=== PATIENT | male | born 1975 | race Caucasian/White ===

== ENCOUNTER 2016-03-02 06:16 | Inpatient (IN) ==
[2016-03-02] MEDS ORDERED: CeFAZolin Pre 3,000 MG/100 ML 3,000 MG/100 ML BAG IVPB ONE (06:35)
--- NOTE | 2016-03-02 07:10 | Anesthesia Evaluation PreOp ---
Date of Encounter: 03/02/16 Time of Encounter: 07:00 - Past History Planned Operation: Exploration Lumbar Fusion, RUSSELL, Posterior Lumbar Fusion Cardiac History: HTN, Hyperlipidemia Pulmonary History: Denies Any Significant HX PLATFORM BUILDER History: Paresis, Other (Myelopathy Left LE) Other Medical History: GERD Anesthesia History: No Prior Anesthetic Complications Alcohol Use: none Drug use: none Medications and Allergies Cephalexin [Keflex] 500 mg PO QID 7 Days 12/12/14 [Rx] TraMADol [Ultram] 50 mg PO TID PRN #10 tablet 12/12/14 [Rx] Naproxen [Naprosyn] 500 mg PO BID #10 tablet 11/04/15 [Rx] OxyCODONE/APAP 5/325 [Percocet 5/325 MG] 2 each PO Q6HR PRN #15 tablet 11/04/15 [Rx] Cephalexin [Keflex] 500 mg PO QID #40 capsule 11/05/15 [Rx] Clotrimazole/Betamethasone Dip [Lotrisone Cream] 15 gm TP BID #1 cream..g. 11/04 [Rx] OxyCODONE/APAP 10/325 [Percocet 10/325 MG] 1 each PO Q6HR PRN #12 tablet [Rx] Allergies No Known Allergies Allergy (Verified 12/20/14 14:17) - Meds/Allergy Pre-op Review Medications Reviewed: Yes Allergies Reviewed: Yes Beta Blockers on Current Med List: Yes (Took Coreg today 0400) Anesthesia Results - Labs Laboratory Tests 02/26/16 02/26/16 02/26/16 14:23 14:23 14:23 Hgb 15.6 Hct 45.1 Plt Count 260 PT 11.1 INR 1.0 APTT 31.7 Sodium 140 Potassium 4.4 BUN 18 Creatinine 0.83 - Imaging EKG: report reviewed (SR) Anesthesia Exam O2 Sat Height 1.78 m Height 1.78 m Height 1.78 m Weight 120.202 kg Weight 120.202 kg Weight 120.202 kg O2 Sat by Pulse Oximetry 98 O2 Sat by Pulse Oximetry 98 Vital Signs Temp Pulse Resp BP Pulse Ox 98.1 F 74 18 139/100 98 03/02/16 06:36 03/02/16 06:36 03/02/16 06:36 03/02/16 06:36 03/02/16 06:36 Height: 5'10 Weight: 265 lbs NPO (# of Hours): MN - HEENT Pupil (Motor): Pupils equal, EOMI Mallampati: II Teeth: Normal Oral Opening: Greater than 3 - PLATFORM BUILDER LOC: Oriented PLATFORM BUILDER Motor: Normal RUE, Normal LUE, Normal RLE, Normal Face, Deficit LLE ( weakness) PLATFORM BUILDER Sensory: Normal: RUE, LUE, RLE, Face, Deficit: LLE - Cardiac Rhythm: Regular Murmur: None JVD: No Carotid Bruit: No - Pulmonary Breath Sounds: bilateral Clear Respiratory Effort: Symmetrical Anesthesia Assess/Plan ASA Score: 2 Modified Emory Scale for Level of Consciousness: Cooperative, oriented, and tranquil Anesthetic Plan: General Monitoring Plan: Standard Monitors Recovery Plan: PACU (Discussed GA, agrees to proceed)
--- NOTE | 2016-03-02 07:33 | History & Physical Report ---
Date of Encounter: 03/02/16 Time of Encounter: 07:32 24 Hour HP Update - Instructions Instructions: If the History and Physical is less than 30 days old and was completed prior to A.M. admission and or procedure and has NOT been updated on calendar day of procedure please complete this update prior to performing procedure. - Update Patient reports changes in Medical Condition: No Changes in assessment/condition: No Changes in Medication: No Preop tests/diagnostics Reviewed: Yes Pre-Op MRSA Screen: Negative Surgery Remains Indicated: Yes Consent for Planned Operative Procedure(s) Verified: Yes - Pre-Operative Checklist Preoperative Checklist Indicated: No Prophylactic Antibiotic Ordered: Yes Home Medications Include Beta Pavel: No Beta Pavel Taken Today (Day of Surgery): No Beta Pavel Taken Yesterday (Day Prior to Surgery): No Is VTE Prophylaxis Indicated?: Yes
[2016-03-02] MEDS: Ringers Solution, Lactated 1,000 ML IVC SCH ×2 (07:43→09:11)
[2016-03-02] MEDS ORDERED: Lidocaine -MPF 4% 5 ML AMPUL ONE (09:08)
[2016-03-02] MEDS ORDERED: EPHEDrine 50 MG/ML VIAL ONE (09:08)
[2016-03-02] MEDS ORDERED: Lidocaine -MPF 2% 2 ML VIAL ONE (09:08)
[2016-03-02] MEDS ORDERED: Dexamethasone 4 MG/ML VIAL ONE ×2 (09:08)
[2016-03-02] MEDS ORDERED: *HR* FentaNYL (PF) 100 MCG/2 ML VIAL ONE ×2 (09:08→11:47)
[2016-03-02] MEDS ORDERED: *HR* Succinylcholine 200 MG/10 ML VIAL IVP ONE (09:08)
[2016-03-02] MEDS ORDERED: *HR* Phenylephrine 10 MG/ML VIAL ONE (09:08)
[2016-03-02] MEDS ORDERED: *HR* Midazolam HCl 2 MG/2 ML VIAL ONE ×2 (09:08)
[2016-03-02] MEDS ORDERED: *HR* Rocuronium Bromide 50 MG/5 ML VIAL ONE (09:08)
[2016-03-02] MEDS ORDERED: *HR* Remifentanil 1 MG VIAL IVP ONE ×2 (09:08→10:08)
[2016-03-02] MEDS ORDERED: Lacri-Lube 3.5 GM TUBE ONE (09:08)
[2016-03-02] MEDS ORDERED: *HR* Propofol 200 MG/20 ML VIAL IVP ONE ×2 (09:08)
[2016-03-02] MEDS ORDERED: Ondansetron 4 MG/2 ML VIAL ONE (09:08)
[2016-03-02] MEDS ORDERED: Ondansetron 4 MG/2 ML VIAL IVP ONE (09:30)
[2016-03-02] MEDS ORDERED: *HR* Promethazine 25 MG/ML VIAL IVP PRN (09:30)
[2016-03-02] MEDS ORDERED: Ringers Solution, Lactated 1,000 ML IVC SCH ×2 (09:30→13:03)
[2016-03-02] MEDS ORDERED: *HR* HYDROmorphone 2 MG/ML SYRINGE ONE (11:42)
--- NOTE | 2016-03-02 12:00 | Orthopedic Operative Note ---
Date of procedure: 03/02/16 Pre-op diagnosis: lumbar stenosis, lumbar radiculopathy, focal motor deficit Post-op diagnosis: same Operation/Findings: Exploration of fusion, removal of hardware, posterior lumbar interbody fusion L3 -L5: The patient successfully underwent general endotracheal anesthesia. The patient was given antibiotics prior to the start of the procedure. Compression boots and stockings were used for deep vein thrombosis prophylaxis. A Caceres catheter was placed. Leads for neuro monitoring were placed on the upper and lower extremities. This included the cranium. The neuro monitoring personnel confirmed there were satisfactory readings prior to the start of the procedure. The patient was turned prone on the Portillo table. The back was prepped and draped in the usual sterile fashion. An incision was was marked and centered over the involved L3-L5 levels in the mid line. The incision was deepened through the lumbar fascia. Bovie cautery and Lara elevators were used to reflect the paraspinal musculature at the lateral extent of the transverse processes of the involved L3-L5 levels. Irasema clamps were placed over the L4- 5 spinous processes. An intraoperative lateral fluoroscopy graft was obtained. A conversation was held between the surgeon and radiologist and both confirmed we had the correct operative levels. We then exposed and subsequently explored the fusion and instrumentation at L4-5. There was noted to be a solid arthrodesis at this level. We removed the hardware at L4 and L5 bilaterally. We then placed pedicle screws in standard fashion with the aid of fluoroscopy and anatomic landmarks at L3 and L4. Briefly a starter awl was used. A gearshift was subsequently used to enter the charter pilot hole via a transpedicular route into the vertebral body. The charter pilot hole was tapped with an undersized instrument, and subsequently four 6.5 x 45 mm pedicle screws were placed bilaterally at the indicated L3 and L4 levels. The screws were tested with the aid of the neurologic monitoring staff via pedicle screw stimulation. All reading suggested there was no significant cortical wall breech. The screws were also evaluated fluoro- graphically and appeared to be in satisfactory position. We then turned our attention to the decompression portion of the procedure. We removed the supraspinous and interspinous ligaments and subsequently the insertion of the ligamentum flavum on the undersurface of the proximal L3 lamina was dislodged with a curette. We then removed the ligamentum flavum as well as undercut the L3-4 facets at this level to decompress the lateral recesses. We also performed a L3 laminectomy. After the decompression, which was over and above that which was required to place the interbody graft, the foramen and traversing roots at this L3-4 level were found to be free and patent. We also took part of the right medial facet in order to aid in the decompression. We then protected the neural elements including the thecal sac and traversing nerve root on the right with a dural retractor. We made an annulotomy into the L3-4 disc space and then removed entire disc material using Pituitary instruments. We trialed various size grafts after the endplates were prepared for graft insertion. A 10 x 26 enter body graft fit well within the L3-4 disc space. We obtained some bone from right the posterior superior iliac spine through us a separate incision and combined with this with the bone which we had saved from the laminectomy portion of the procedure. This autograft bone was first placed in the anterior portion of the L3-4 disc space and additional bone was placed within the interbody graft spacer. We then placed the interbody graft spacer obliquely across the L3-4 disc space towards the midline while protecting the neural elements with a root retractor. When the graft was found to be in satisfactory position the supervisor sound technician was removed. We then copiously irrigated the wound. We then decorticated the L3, L4, and L5 transverse processes as well as the L3-4 amd L4-5 facet joints of the involved levels to aid in the posterolateral fusion. We placed autograft bone in the lateral gutters over these regions. We then placed rods within the screw heads of the involved L3 and L4 levels and first locked the distal screws and then subsequently locked the proximal screws. We then closed the wound in layers with 1 Vicryl for the fascia, 2-0 Vicryl. Subcutaneous tissue, and Dermabond was used for skin closure. Sterile dressings were placed over the wound. The patient was turned supine on a hospital bed and extubated. All sponge instruments and needle counts were correct at the end of the procedure. The patient tolerated the procedure well without complications. Anesthesia: GETA Surgeon: Royce Perdomo Jr Estimated blood loss (cc): 350 Condition: stable Disposition: PACU
[2016-03-02] MEDS: *HR* HYDROmorphone (PF) 1 MG/ML SYRINGE IVP PRN ×4 (12:19→12:42)
[2016-03-02] MEDS ORDERED: *HR* Metoprolol 5 MG/5 ML VIAL IVP PRN (12:20)
--- NOTE | 2016-03-02 12:54 | Anesthesia Evaluation Post Op ---
Date of Encounter: 03/02/16 Time of Encounter: 12:53 - Vital Signs Vital Signs: Vital Signs/O2 Sat, Most Current Temp Pulse Resp BP Pulse Ox 100.6 F H 99 18 138/92 94 L 03/02/16 12:10 03/02/16 12:40 03/02/16 12:40 03/02/16 12:40 03/02/16 12:40 - Lungs Lungs: Clear Ascult./Percussion - Airway Airway: Non-obstructed - Cardiovascular Regular Rate - Mental Status Mental Status: Alert & Oriented, Answers Appropriately - Pain Pain Scale: 8 (Drowsy, pain improved) Pain Scale used: Numeric (1 - 10) - Nausea Vomiting Nausea Vomiting: Not Present - Hydration Hydration: Ice chips, Caceres catheter - Discharge PostOp Status: Transfer Patient to floor
[2016-03-02] MEDS ORDERED: Ondansetron 4 MG/2 ML VIAL IVP PRN (13:03)
[2016-03-02] MEDS ORDERED: Naloxone 0.4 MG/ML INJ IVP PRN (13:03)
[2016-03-02] MEDS: *HR* OxyCODONE Immed Rel 5 MG TABLET PO PRN ×3 (13:54→22:25)
[2016-03-02] MEDS: *HR* Morphine 2 MG/ML SYRINGE IVP PRN ×3 (14:23→23:34)
[2016-03-02] MEDS ORDERED: diazePAM 5 MG TABLET PO PRN (15:26)
[2016-03-02] MEDS: ceFAZolin 2,000 MG in D5% in Water 100 ML IVPB SCH ×2 (15:30→23:35)
[2016-03-02] MEDS: Acetaminophen IV 1,000 MG/100 ML INFUS..BTL IVPB PRN (16:30)
[2016-03-02] MEDS: Mirtazapine 15 MG TABLET PO SCH (21:02)
[2016-03-02] MEDS: Lisinopril 20 MG TABLET PO SCH (21:02)
[2016-03-03] MEDS: *HR* OxyCODONE Immed Rel 5 MG TABLET PO PRN ×4 (02:34→20:37)
[2016-03-03] MEDS: *HR* Morphine 2 MG/ML SYRINGE IVP PRN ×3 (04:54→18:57)
[2016-03-03 06:43] LABS: Basophils % 0.1 %; Hematocrit 37.6 % (37.5-50.1); Immature Granulocytes % 0.7 % (0-4); Lymphocytes # 1.4 K/mcL (0.6-4.6); Lymphocytes % 7.5 %; Mean Corpuscular Hemoglobin 29.4 pg (28.0-33.3); Mean Corpuscular Volume 86.2 fL (83.0-100.0); Mean Platelet Volume 9.6 fL (9.4-12.4); Monocytes # 1.4 K/mcL (0.0-1.3); Monocytes % 7.6 %; Neutrophils # 15.4 K/mcL (1.6-8.9); Platelet Count 248 K/mcL (140-400); Red Blood Count 4.36 M/mcL (4.19-5.50); Red Cell Distribution Width 12.9 % (11.5-14.5); Segmented Neutrophils % 84.1 %
[2016-03-03 06:49] LABS: BUN/Creatinine Ratio 17 (6-26); Blood Urea Nitrogen 12 mg/dL (8-26); Calcium 8.8 mg/dL (8.6-10.8); Carbon Dioxide 26 mEq/L (19-29); Chloride 106 mEq/L (98-109); Glucose 161 mg/dL (70-99); Osmolality,Calculated 291 (280-300); Potassium 4.1 mEq/L (3.5-4.5); Sodium 139 mEq/L (136-145); eGFR For African Americans > 60 (> 60); eGFR For Non-African Americans > 60 (> 60)
[2016-03-03 06:54] LABS: Hemoglobin 12.8 g/dL (12.9-16.9)
[2016-03-03] MEDS: Lisinopril 20 MG TABLET PO SCH ×2 (10:10→20:33)
--- NOTE | 2016-03-03 13:25 | Spine Progress Note ---
Date of Encounter: 03/03/16 Time of Encounter: 13:24 Subjective Principal diagnosis: s/p lumbar fusion, lumbar radiculopathy, lumbar stenosis Interval history: The patient complains of back pain and some leg pain.. Afebrile vital signs are stable. Incision is clean dry and intact. Neurovascularly intact with regard to bilateral lower extremities with mild preoperative dorsiflexion weakness on the left. Fires all upper and lower extremity motor groups. Assessment :stable. Plan mobilize ,continue analgesics, discharge planning. Objective Vital signs: Vital Signs Temp Pulse Resp BP Pulse Ox 03/03/16 10:09 98.5 F 87 16 131/74 96 03/03/16 06:38 98.3 F 92 16 127/78 96 03/03/16 04:53 98.5 F 88 16 125/76 95 03/02/16 23:32 98.0 F 107 18 123/71 95 03/02/16 16:28 98.1 F 100 16 136/97 95 03/02/16 15:18 98.2 F 103 16 144/103 93 L 03/02/16 14:31 97.7 F 103 16 132/100 94 L 03/02/16 13:45 97.8 F 106 16 122/97 94 L Intake and Output 03/02/16 03/03/16 03/03/16 23:59 07:59 15:59 Intake Total 100 / 100 100 / 100 Output Total 2850 / 2850 1250 / 1250 Balance -2750 / -2750 -1150 / -1150 Intake: IV Fluids 100 / 100 100 / 100 Ancef 2,000 MG In 100 / 100 100 / 100 Dextrose 5% 100 ML @ 200 mls/hr IVPB Q8HR [facility] Rx#: [id number] Output: Urine 1250 / 1250 Catheter 2850 / 2850 - Labs CBC & BMP: 03/03/16 06:16 03/03/16 06:16 Labs: Abnormal lab results WBC 18.3 K/mcL (4.3-11.1) H D 03/03/16 06:16 Hgb 12.8 g/dL (12.9-16.9) L D 03/03/16 06:16 Neutrophils # 15.4 K/mcL (1.6-8.9) H 03/03/16 06:16 Monocytes # 1.4 K/mcL (0.0-1.3) H 03/03/16 06:16 Glucose 161 mg/dL (70-99) H 03/03/16 06:16 Consult Discharge Plan - Plan Referrals: Jim Tilley MD [Primary Care Provider] -
[2016-03-03] MEDS: Mirtazapine 15 MG TABLET PO SCH (20:37)
[2016-03-03] MEDS: Acetaminophen IV 1,000 MG/100 ML INFUS..BTL IVPB PRN (21:55)
[2016-03-04] MEDS: *HR* OxyCODONE Immed Rel 5 MG TABLET PO PRN ×5 (01:52→21:50)
[2016-03-04] MEDS: *HR* Morphine 2 MG/ML SYRINGE IVP PRN ×5 (04:18→19:45)
[2016-03-04] MEDS: Lisinopril 20 MG TABLET PO SCH (09:05)
[2016-03-04] MEDS: Acetaminophen IV 1,000 MG/100 ML INFUS..BTL IVPB PRN ×2 (09:08→22:39)
--- NOTE | 2016-03-04 12:02 | Spine Progress Note ---
Date of Encounter: 03/04/16 Time of Encounter: 12:01 Subjective Principal diagnosis: s/p lumbar fusion, lumbar radiculopathy, lumbar stenosis Interval history: The patient complains of back pain and some leg pain.. Afebrile vital signs are stable. Incision is clean dry and intact. Neurovascularly intact with regard to bilateral lower extremities with mild preoperative dorsiflexion weakness on the left. Fires all upper and lower extremity motor groups. Assessment :stable. Plan mobilize ,continue analgesics, discharge planning. Objective Vital signs: Vital Signs Temp Pulse Resp BP Pulse Ox 03/04/16 11:38 98.1 F 72 12 96/42 98 03/04/16 06:34 98.3 F 73 16 105/56 97 03/04/16 04:56 103/59 03/04/16 00:38 98.1 F 76 17 135/85 96 03/03/16 21:24 97.3 F L 80 17 130/84 98 03/03/16 15:11 97.8 F 78 16 104/68 98 Intake and Output 03/03/16 03/04/16 03/04/16 23:59 07:59 15:59 Intake Total 560 / 560 100 / 100 100 / 100 Output Total 1700 / 1700 Balance 560 / 560 -1600 / -1600 100 / 100 Intake: IV Fluids 200 / 200 100 / 100 Ofirmev 1,000 mg In 100 200 / 200 100 / 100 ml @ 400 mls/hr IVPB Q6HR PRN Rx#:[id number] Oral 360 / 360 100 / 100 Output: Urine 1700 / 1700 Other: # Voids 1 - Labs CBC & BMP: 03/03/16 06:16 03/03/16 06:16 Labs: Abnormal lab results WBC 18.3 K/mcL (4.3-11.1) H D 03/03/16 06:16 Hgb 12.8 g/dL (12.9-16.9) L D 03/03/16 06:16 Neutrophils # 15.4 K/mcL (1.6-8.9) H 03/03/16 06:16 Monocytes # 1.4 K/mcL (0.0-1.3) H 03/03/16 06:16 Glucose 161 mg/dL (70-99) H 03/03/16 06:16 Consult Discharge Plan - Plan Referrals: Jim Tilley MD [Primary Care Provider] -
[2016-03-04] MEDS: Mirtazapine 15 MG TABLET PO SCH (21:49)
[2016-03-05] MEDS: *HR* Morphine 2 MG/ML SYRINGE IVP PRN ×3 (00:27→12:20)
[2016-03-05] MEDS: *HR* OxyCODONE Immed Rel 5 MG TABLET PO PRN ×3 (05:13→14:05)
[2016-03-05] MEDS: Lisinopril 20 MG TABLET PO SCH (07:19)
[2016-03-05 11:11] VITALS: BP 95/57
--- NOTE | 2016-03-05 13:49 | Discharge Summary ---
Date of Encounter: 03/05/16 Time of Encounter: 13:45 - Discharge Diagnosis (1) Retrolisthesis of vertebrae Priority: Primary Status: Chronic (2) Lumbar stenosis Priority: Secondary Status: Chronic (3) Lumbar radiculopathy Priority: Secondary Status: Chronic (4) History of lumbar fusion Priority: Secondary Status: Chronic - Discharge Medications Prescriptions: OxyCODONE Immed Rel [Roxicodone 5 MG] 5 mg PO Q4HR PRN #60 tablet PRN Reason: Pain Home Medications: Carvedilol 12.5 mg PO BID 03/02/16 [History] Cyclobenzaprine HCl 5 mg PO TID PRN 03/02/16 [History] Duloxetine HCl [Cymbalta] 60 mg PO DAILY 03/02/16 [History] Ibuprofen [Motrin] 800 mg PO Q8HR 03/02/16 [History] Lidocaine Patch [Lidoderm 5% patch] 1 each TP DAILY 03/02/16 [History] Lisinopril [Zestril] 40 mg PO DAILY 03/02/16 [History] Mirtazapine [Remeron] 15 mg PO HS 03/02/16 [History] Omeprazole [PriLOSEC] 40 mg PO DAILY 03/02/16 [History] OxyCODONE/APAP 5/325 [Percocet 5/325 MG] 1 each PO Q8HR PRN 03/02/16 [History] OxyCODONE Immed Rel [Roxicodone 5 MG] 5 mg PO Q4HR PRN #60 tablet 03/05/16 [Rx] Allergies/Adverse Reactions: Allergies No Known Allergies Allergy (Verified 03/02/16 09:51) - Impressions ITS Impressions Lumbar Spine X-Ray 03/02/16 08:24 IMPRESSION: Limited study demonstrating removal of orthopedic hardware from the L4-5 level and interval fusion of L3-4. D/ / 03/02/2016 12:11:23 Yogesh Herrera MD / yvonne Interpreting Provider: Yogesh Herrera MD Lumbar Spine X-Ray 03/05/16 08:15 IMPRESSION: Stable exam and no acute abnormality D/ / Ronak Chopra MD / Ronak Chopra MD Interpreting Provider: Ronak Chopra MD Date of admission: 03/02/16 13:41 Primary care physician: Jim Tilley MD Consults: 03/02/16 13:03 Consult to Occupational Therapy [CONS] Routine Comment: Evaluate, develop and implement POC Consult to Physical Therapy [CONS] Routine Comment: Evaluate, develop and implement POC Consult to Spine Navigator [CONS] [CONS] Routine - Patient Status Disposition: Home, Self-Care Condition: Good Functional capacity at discharge: independent ambulation Overall status at discharge: patient is progressing back to baseline - Discharge Instructions Follow Up With: Jim Tilley MD [Primary Care Provider] - - Diet and Activity Activity: as per physical therapy Diet: advance to your usual diet - Hospital Course Hospital course: Mr. Franklin is a 40 year old male The patient had an uneventful postoperative course. Progressed from intravenous analgesic needs to oral analgesic needs only. Remained neurovascularly intact and mobilized satisfactorily. All intraoperative and/or postoperative radiographic studies were satisfactory. Patient is discharged with plan for rehabilitation and follow-up in 2 weeks post discharge on analgesic medication and patient's home medications. - Time Spent with Patient Total time spent providing and/or coordinating discharge services: - VTE Documentation of Mechanical Device: Intermittent pneumatic compression device
== END 2016-03-05 17:14 | disposition home or self-care (01) | DRG 304 ==
LOC: SAMDAY 06:16 → 3NENU 13:41
PROVIDERS: ADMIT Orthopaedic Surgery Orthopaedic Surgery of the Spine; ATTEND Orthopaedic Surgery Orthopaedic Surgery of the Spine

== ENCOUNTER 2016-10-12 20:25 | Inpatient (IN) ==
--- NOTE | 2016-10-12 22:31 | Emergency Department Note ---
Disposition Clinical Impression: Failure of outpatient treatment Cellulitis Qualifiers: Site of cellulitis: extremity Site of cellulitis of extremity: lower extremity Laterality: left Qualified Code(s): L03.116 - Cellulitis of left lower limb Disposition: Admitted As Inpatient Forms: ED Satisfaction Letter Skin/Abscess/FB HPI Chief complaint: ED Extremity Problem,Nontraumatic Stated complaint: Cellulitis Left lower leg Time Seen by Provider: 10/12/16 22:07 Source: patient Limitations: no limitations Nursing Notes Reviewed: Yes Vital Signs Reviewed: Yes HPI Narrative: She started developing left lower extremity cellulitis 2 days ago. On Tuesday was seen in urgent care received I am an injection of Rocephin and sent home on Keflex. Despite the antibiotics it has continued up his leg and also seems to skip and involving the medial left thigh. He denies any fevers chills nausea vomiting has some moderate discomfort goal aching pain. Ambling makes his symptoms worse rest elevation improves his symptoms. He has had several episodes of cellulitis in the past on the left lower extremity. Home Medications Medication Instructions Recorded Confirmed Carvedilol 12.5 mg PO BID 03/02/16 10/12/16 Cyclobenzaprine HCl 5 mg PO TID 03/02/16 10/12/16 Duloxetine HCl [Cymbalta] 60 mg PO DAILY 03/02/16 10/12/16 Ibuprofen [Motrin] 800 mg PO Q8HR PRN 03/02/16 10/12/16 Lisinopril [Zestril] 40 mg PO DAILY 03/02/16 10/12/16 Omeprazole [PriLOSEC] 40 mg PO DAILY 03/02/16 10/12/16 Mirtazapine [Remeron] 15 mg PO HS 10/12/16 10/12/16 Triamcinolone Acet 0.1% CRM 1 appl TP BID 10/12/16 10/12/16 [Kenalog] cephALEXin [Keflex] 500 mg PO Q6H 10/12/16 10/12/16 Allergies Allergy/AdvReac Type Severity Reaction Status Date / Time No Known Allergies Allergy Verified 03/02/16 09:51 All systems ED: reviewed and negative except as stated. Constitutional: Denies: fever, chills Respiratory: Denies: cough Gastrointestinal: Denies: nausea, vomiting Past Medical History - Past Medical History Source: patient, nursing notes reviewed Medical history: Reports: GERD, hypertension, kidney stones Psychiatric history: Reports: no psych history - Social History Smoking Status: Never smoker Smokeless Tobacco Status: No Alcohol use: Reports: none Drug use: Reports: none Physical Exam - General Limitations: no limitations General appearance: alert, in no apparent distress - ENT ENT exam: normal exam, normal oropharynx, mucous membranes moist - Chest Chest inspection: Present: normal inspection, symmetric chest wall rise - Respiratory Respiratory exam: Present: normal lung sounds bilaterally - Cardiovascular Cardiovascular exam: Present: regular rate, normal rhythm, normal heart sounds - Abdominal Exam Abdominal exam: Present: soft, Non-Tender. Absent: tenderness, distention, guarding, rebound, rigidity - Expanded Lower Extremity Exam Lower leg exam: Present: other (Patient has outline of erythema and swelling the left lower extremity also has some erythema and warmth in the medial left thigh) - Neurological Exam Neurological exam: Present: alert, oriented X3 - Psychiatric Psychiatric exam: Present: normal affect, normal mood Course Vital Signs Temperature 97.8 F 10/12/16 20:27 Pulse Rate 87 10/12/16 20:27 Respiratory Rate 18 10/12/16 20:27 Blood Pressure 151/94 10/12/16 20:27 O2 Sat by Pulse Oximetry 91 10/12/16 20:27 Temperature 97.8 F 10/12/16 20:27 Pulse Rate 87 10/12/16 20:27 Respiratory Rate 18 10/12/16 20:27 Blood Pressure 151/94 10/12/16 20:27 O2 Sat by Pulse Oximetry 91 10/12/16 20:27 Oxygen Delivery Oxygen Delivery Room Air Skin/Abscess/Foreign Body - Lab Data Result diagrams: 10/12/16 22:24 10/12/16 22:24 Lab Results 10/12/16 10/12/16 10/12/16 Range/Units 22:24 22:24 22:24 WBC 8.3 (4.3-11.1) K/mcL RBC 4.68 (4.19-5.50) M/mcL Hgb 13.6 (12.9-16.9) g/dL Hct 40.4 (37.5-50.1) % MCV 86.3 (83.0-100.0) fL MCH 29.1 (28.0-33.3) pg MCHC 33.7 (31.6-35.5) g/dL RDW 13.2 (11.5-14.5) % Plt Count 186 (140-400) K/mcL MPV 10.0 (9.4-12.4) fL Immature Gran % 0.5 (0-4) % Seg Neutrophils % 76.9 % Lymphocytes % 11.5 % Monocytes % 10.5 % Eosinophils % 0.2 % Basophils % 0.4 % Neutrophils # 6.4 (1.6-8.9) K/mcL Lymphocytes # 1.0 (0.6-4.6) K/mcL Monocytes # 0.9 (0.0-1.3) K/mcL Eosinophils # 0.0 (0.0-0.6) K/mcL Basophils # 0.0 (0.0-0.2) K/mcL Platelet Estimate Normal (Normal) ESR 40 H (0-10) mm/hr PT 11.3 (9.4-12.1) Seconds INR 1.1 APTT 30.2 (26.0-36.0) Seconds Sodium (136-145) mEq/L Potassium (3.5-4.5) mEq/L Chloride (98-109) mEq/L Carbon Dioxide (19-29) mEq/L BUN (8-26) mg/dL Creatinine (0.72-1.25) mg/dL Est GFR ( Amer) (> 60) Est GFR (Non-Af Amer) (> 60) BUN/Creatinine Ratio (6-26) Glucose (70-99) mg/dL Calculated Osmolality (280-300) Lactic Acid (0.5-2.2) mmol/L Calcium (8.6-10.8) mg/dL Magnesium (1.6-2.6) mg/dL Total Bilirubin (0.2-1.2) mg/dL Direct Bilirubin (0.0-0.5) mg/dL Indirect Bilirubin (0.0-1.2) mg/dL AST (5-34) Units/L ALT (0-55) Units/L Alkaline Phosphatase (38-126) Units/L Serum Total Protein (6.0-8.3) g/dL Albumin (3.5-5.0) g/dL Globulin (2.4-3.5) g/dL Albumin/Globulin Ratio (1.1-2.2) 10/12/16 10/12/16 Range/Units 22:24 22:24 WBC (4.3-11.1) K/mcL RBC (4.19-5.50) M/mcL Hgb (12.9-16.9) g/dL Hct (37.5-50.1) % MCV (83.0-100.0) fL MCH (28.0-33.3) pg MCHC (31.6-35.5) g/dL RDW (11.5-14.5) % Plt Count (140-400) K/mcL MPV (9.4-12.4) fL Immature Gran % (0-4) % Seg Neutrophils % % Lymphocytes % % Monocytes % % Eosinophils % % Basophils % % Neutrophils # (1.6-8.9) K/mcL Lymphocytes # (0.6-4.6) K/mcL Monocytes # (0.0-1.3) K/mcL Eosinophils # (0.0-0.6) K/mcL Basophils # (0.0-0.2) K/mcL Platelet Estimate (Normal) ESR (0-10) mm/hr PT (9.4-12.1) Seconds INR APTT (26.0-36.0) Seconds Sodium 137 (136-145) mEq/L Potassium 3.4 L (3.5-4.5) mEq/L Chloride 103 (98-109) mEq/L Carbon Dioxide 27 (19-29) mEq/L BUN 21 (8-26) mg/dL Creatinine 1.23 (0.72-1.25) mg/dL Est GFR ( Amer) > 60 (> 60) Est GFR (Non-Af Amer) > 60 (> 60) BUN/Creatinine Ratio 17 (6-26) Glucose 102 H (70-99) mg/dL Calculated Osmolality 287 (280-300) Lactic Acid 1.2 (0.5-2.2) mmol/L Calcium 9.3 (8.6-10.8) mg/dL Magnesium 1.9 (1.6-2.6) mg/dL Total Bilirubin 0.8 (0.2-1.2) mg/dL Direct Bilirubin 0.3 (0.0-0.5) mg/dL Indirect Bilirubin 0.5 (0.0-1.2) mg/dL AST 44 H (5-34) Units/L ALT 31 (0-55) Units/L Alkaline Phosphatase 83 (38-126) Units/L Serum Total Protein 6.9 (6.0-8.3) g/dL Albumin 3.3 L (3.5-5.0) g/dL Globulin 3.6 H (2.4-3.5) g/dL Albumin/Globulin Ratio 0.9 L (1.1-2.2)
[2016-10-12 22:34] LABS: Basophils % 0.4 %; Eosinophils % 0.2 %; Hematocrit 40.4 % (37.5-50.1); Hemoglobin 13.6 g/dL (12.9-16.9); Immature Granulocytes % 0.5 % (0-4); Lymphocytes % 11.5 %; Mean Corpuscular HGB Conc 33.7 g/dL (31.6-35.5); Mean Corpuscular Hemoglobin 29.1 pg (28.0-33.3); Mean Corpuscular Volume 86.3 fL (83.0-100.0); Monocytes # 0.9 K/mcL (0.0-1.3); Monocytes % 10.5 %; Neutrophils # 6.4 K/mcL (1.6-8.9); Platelet Count 186 K/mcL (140-400); Red Blood Count 4.68 M/mcL (4.19-5.50); Red Cell Distribution Width 13.2 % (11.5-14.5); Segmented Neutrophils % 76.9 %
[2016-10-12] MEDS ORDERED: Vancomycin 1,750 MG in D5% in Water 500 ML IVPB ONE (22:35)
[2016-10-12] MEDS ORDERED: Piperacillin/Tazobactam 3.375 GM in D5% in Water (Mini-Bag+) 100 ML IVPB ONE (22:35)
[2016-10-12 22:40] LABS: INR 1.1; Prothrombin Time 11.3 Seconds (9.4-12.1)
[2016-10-12 22:43] LABS: Activated Partial Thrombo Time 30.2 Seconds (26.0-36.0)
[2016-10-12 22:49] LABS: Alanine Aminotransferase 31 Units/L (0-55); Albumin 3.3 g/dL (3.5-5.0); Albumin/Globulin Ratio 0.9 (1.1-2.2); Alkaline Phosphatase 83 Units/L (38-126); Aspartate Amino Transferase 44 Units/L (5-34); BUN/Creatinine Ratio 17 (6-26); Bilirubin,Direct 0.3 mg/dL (0.0-0.5); Bilirubin,Indirect 0.5 mg/dL (0.0-1.2); Bilirubin,Total 0.8 mg/dL (0.2-1.2); Blood Urea Nitrogen 21 mg/dL (8-26); Calcium 9.3 mg/dL (8.6-10.8); Carbon Dioxide 27 mEq/L (19-29); Chloride 103 mEq/L (98-109); Globulin 3.6 g/dL (2.4-3.5); Glucose 102 mg/dL (70-99); Magnesium 1.9 mg/dL (1.6-2.6); Osmolality,Calculated 287 (280-300); Potassium 3.4 mEq/L (3.5-4.5); Sodium 137 mEq/L (136-145); Total Protein 6.9 g/dL (6.0-8.3); eGFR For African Americans > 60 (> 60); eGFR For Non-African Americans > 60 (> 60)
[2016-10-12 23:02] LABS: Platelet Estimate Normal (Normal)
--- NOTE | 2016-10-13 01:55 | Internal Med History&Physical ---
Date of Encounter: 10/13/16 Time of Encounter: 01:55 Assessment and Plan (1) Cellulitis Current visit: Yes Status: Acute severe, failed OP abx. Painful. Lactate is normal, doubt necrotizing fasciitis. ESR 40 - Cont vancomycin, Zosyn - Percocet prn - ID consult - Recheck lactate in AM - Check blood cultures if febrile Qualifiers: Site of cellulitis: extremity Site of cellulitis of extremity: lower extremity Laterality: left Qualified Code(s): L03.116 - Cellulitis of left lower limb (2) HTN (hypertension) Current visit: Yes Status: Acute cont coreg and lisinopril Qualifiers: Hypertension type: essential hypertension Qualified Code(s): I10 - Essential (primary) hypertension (3) Hypokalemia Current visit: Yes Status: Acute replace PO (4) Failure of outpatient treatment Current visit: Yes Status: Acute as above (5) GERD (gastroesophageal reflux disease) Current visit: Yes Status: Acute cont PPI Qualifiers: Esophagitis presence: without esophagitis Qualified Code(s): K21.9 - Gastro -esophageal reflux disease without esophagitis Internal Medicine - H&P: HPI Chief complaint: leg pain Admitted From: Emergency Dept Plans for Post Hospital Care: Home History of present illness: 41M with recurrent cellulitis for years (at least 4 major episodes) developed LLE redness, pain, swwelling and fever 105F, went to urgent care, and received IM ceftriaxone and PO Keflex 3 days ago. He presented to ER due to ongoing symptoms and extension of redness to medial thigh. Diaphoresis. Chills. Rigors. Nausea. Headache. Dyspnea. A 10-point ROS is otherwise negative. Past Med Surg Social Fam HX - Past Medical History Medical history: GERD, hypertension, kidney stones Psychiatric history: no psych history - Social History Smoking Status: Never smoker Smokeless Tobacco Status: No Alcohol use: none Drug use: none - Family History Mother Adopted: No Living Status: Still Living Hx Family Cardiac Disorders: Yes (father afib, Mother HTN) Hx Family Respiratory Disorders: Yes (grandmother COPD) Hx Family Cancer: Yes (brother liver cancer) Hx Family GI Disorders: No Hx Family Genitourinary Disorders: No Hx Family Endocrine Disorder: Yes (Mother diabetic and dialysis) Hx Family Musculoskeletal Disorders: No Hx Family Neuromuscular Disorders: No Hx Family Neurologic Disorders: No Hx Family HEENT Disorders: No Hx Family Autoimmune Disorders: No Hx Family Reproductive Disorders: No Hx Family Psychosocial Disorders: No Hx Family Medical Disorders: No Internal Medicine - H&P: Meds Carvedilol 12.5 mg PO BID 03/02/16 [History] Cyclobenzaprine HCl 5 mg PO TID 03/02/16 [History] Duloxetine HCl [Cymbalta] 60 mg PO DAILY 03/02/16 [History] Ibuprofen [Motrin] 800 mg PO Q8HR PRN 03/02/16 [History] Lisinopril [Zestril] 40 mg PO DAILY 03/02/16 [History] Omeprazole [PriLOSEC] 40 mg PO DAILY 03/02/16 [History] Mirtazapine [Remeron] 15 mg PO HS 10/12/16 [History] Triamcinolone Acet 0.1% CRM [Kenalog] 1 appl TP BID 10/12/16 [History] cephALEXin [Keflex] 500 mg PO Q6H 10/12/16 [History] 3 Allergy/AdvReac Type Severity Reaction Status Date / Time No Known Allergies Allergy Verified 03/02/16 09:51 All Systems PM: A 10-system review of systems was performed and is negative for pertinent findings except as documented above in the HPI. - Constitutional Vitals: Temp Pulse Resp BP Pulse Ox 98.8 F 90 16 145/81 97 10/13/16 00:38 10/13/16 00:38 10/13/16 00:38 10/13/16 00:38 10/12/16 23:34 General appearance: Present: A&O X 3, pleasant, no acute distress - Head Head exam: Present: atraumatic, normocephalic - Eye Eye exam: Present: PERRL, conjuntiva pink, sclera anicteric Pupils: Present: PERRL - Neck Neck exam general surgery: Present: supple, trachea midline. Absent: nuchal rigidity - Respiratory Respiratory exam: Present: CTAB. Absent: accessory muscle use, rales, rhonchi, wheezes - Cardiovascular Cardiovascular exam: Present: RRR, +S1, +S2. Absent: diastolic murmur, gallop, rubs, systolic murmur - GI/Abdominal GI/Abdominal exam: Present: normal bowel sounds, soft, no peritoneal signs. Absent: distended, guarding, rebound, tenderness - Extremities Exam Extremities exam: Present: calf tenderness (left leg tenderness, erythema, warmth, marked, from foot all the way to medial thigh. Positive tenderness, no purulent discharge, compartments are soft. ), pedal edema (left leg), tenderness , warm, radial pulses palpable and symmetrical. Absent: cyanotic - Neurological Exam Neurological exam: Present: CN II-XII intact, oriented X3, no focal deficits. Absent: facial droop, speech deficit - Psychiatric Psychiatric exam: Present: normal affect, normal mood - Skin Skin exam: Present: dry, intact Internal Med - H&P Results - Labs CBC & Chem 7: 10/12/16 22:24 10/12/16 22:24 Labs: Short CBC 10/13/16 Range/Units 00:11 Lactic Acid 1.8 (0.5-2.2) mmol/L
[2016-10-13] MEDS: *HR* OxyCODONE/APAP 5/325 TABLET PO PRN ×2 (02:20→13:57)
[2016-10-13] MEDS ORDERED: *HR* HYDROmorphone (PF) 1 MG/ML SYRINGE IVP PRN (03:05)
[2016-10-13] MEDS ORDERED: Naloxone 0.4 MG/ML INJ IVP PRN (03:05)
[2016-10-13] MEDS ORDERED: Ringers Solution, Lactated 1,000 ML IVC SCH (03:15)
[2016-10-13] MEDS: Mirtazapine 15 MG TABLET PO SCH ×2 (03:57→21:24)
[2016-10-13] MEDS: *HR* Enoxaparin 40 MG/0.4 ML SYRINGE SQ SCH (06:08)
[2016-10-13 07:29] LABS: Hemoglobin 12.5 g/dL (12.9-16.9); Mean Corpuscular HGB Conc 34.7 g/dL (31.6-35.5); Mean Corpuscular Hemoglobin 29.5 pg (28.0-33.3); Mean Corpuscular Volume 84.9 fL (83.0-100.0); Mean Platelet Volume 10.6 fL (9.4-12.4); Platelet Count 176 K/mcL (140-400); Red Blood Count 4.24 M/mcL (4.19-5.50); Red Cell Distribution Width 13.2 % (11.5-14.5)
[2016-10-13 07:58] LABS: BUN/Creatinine Ratio 13 (6-26); Blood Urea Nitrogen 12 mg/dL (8-26); Calcium 8.9 mg/dL (8.6-10.8); Carbon Dioxide 25 mEq/L (19-29); Chloride 106 mEq/L (98-109); Glucose 113 mg/dL (70-99); Osmolality,Calculated 287 (280-300); Potassium 3.4 mEq/L (3.5-4.5); Sodium 138 mEq/L (136-145); eGFR For African Americans > 60 (> 60); eGFR For Non-African Americans > 60 (> 60)
[2016-10-13 08:07] LABS: Lymphocytes # 1.4 K/mcL (0.6-4.6); Monocytes # 0.2 K/mcL (0.0-1.3)
[2016-10-13 08:08] LABS: Platelet Estimate Normal (Normal)
[2016-10-13] MEDS: Piperacillin/Tazobactam 3.375 GM in D5% in Water (Mini-Bag+) 100 ML IVPB SCH ×3 (09:09→23:44)
[2016-10-13] MEDS: Lisinopril 20 MG TABLET PO SCH (09:10)
[2016-10-13] MEDS: Triamcinolone Acet 0.1% CRM 15 GM TUBE TP SCH ×2 (09:10→21:24)
--- NOTE | 2016-10-13 09:39 | Internal Med Progress Note ---
<Lex Lang - Last Filed: 10/13/16 17:12> Date of Encounter: 10/13/16 Time of Encounter: 10:45 - Assessment and plan (1) Cellulitis Current Visit: Yes Status: Acute Assessment and plan: Patient's redness of his L leg has extended into the groin area and lower into the ankle. He admitted to calf tenderness. Venous doppler ultrasound was ordered of the L leg. Follow-up with results. Blood culture results are pending. Continue vanc and zosyn antibiotics. Qualifiers: Site of cellulitis: extremity Site of cellulitis of extremity: lower extremity Laterality: left Qualified Code(s): L03.116 - Cellulitis of left lower limb (2) Hypokalemia Current Visit: Yes Status: Acute Assessment and plan: Patient's potassium was at 3.4. He was given 40 meq K+ PO once. Recheck potassium tomorrow. (3) HTN (hypertension) Current Visit: Yes Status: Acute Assessment and plan: Current BP is at 110/76 and is well controlled. Continue with coreg and lisinopril. Qualifiers: Hypertension type: essential hypertension Qualified Code(s): I10 - Essential (primary) hypertension (4) GERD (gastroesophageal reflux disease) Current Visit: Yes Status: Acute Assessment and plan: Patient currently denies any chest pain or heart burn. Continue with prilosec. Qualifiers: Esophagitis presence: without esophagitis Qualified Code(s): K21.9 - Gastro -esophageal reflux disease without esophagitis - Time Spent With Patient less than 15 minutes - Subjective Interval history: 41 yo male admitted for cellulitis of the L leg. Spoke to patient today and he says the redness of his L leg has extended up to the groin area and down his ankle. He says the pain from his leg has been the same since yesterday. He admits to a subjective fever, but denies chills. He admits to headaches and nausea, but denies vomiting, chest pain, dizziness, light headedness, or syncope. Since the patient has had cellulitis of his leg 3 times in the past, I asked if he walks bare foot at home or outside and he denied it. I also asked if he noticed any puncture wounds or bleeding the previous times he had cellulitis and he denied it. - Constitutional Vitals: Temp Pulse Resp BP Pulse Ox 99.2 F 84 16 116/74 92 10/13/16 07:58 10/13/16 07:58 10/13/16 07:58 10/13/16 07:58 10/13/16 09:25 General appearance: Present: A&O X 3, pleasant, no acute distress - Respiratory Respiratory exam: Present: CTAB. Absent: rhonchi, wheezes, tachypnea - Cardiovascular Cardiovascular exam: Present: RRR, +S1, +S2. Absent: diastolic murmur, systolic murmur - GI/Abdominal GI/Abdominal exam: Present: normal bowel sounds, soft. Absent: guarding, rebound, tenderness - Extremities Exam Extremities exam: Present: calf tenderness (Displayed calf tenderness to L leg. ), tenderness (Tednerness to palpation of the lower L leg. ), warm. Absent: cyanotic Additional comments: Pedal pulses intact bilaterally. No signs of bleeding or open wounds. Intact sensation of the lower extremities bilaterally. Internal Medicine: Result - Labs CBC & Chem 7: 10/13/16 06:47 10/13/16 06:46 Labs: Short CBC 10/13/16 Range/Units 06:47 WBC 7.5 (4.3-11.1) K/mcL Hgb 12.5 L (12.9-16.9) g/dL Hct 36.0 L (37.5-50.1) % Plt Count 176 (140-400) K/mcL Neutrophils # 6.0 (1.6-8.9) K/mcL BMP 10/13/16 06:46 Sodium 138 Potassium 3.4 L Chloride 106 Carbon Dioxide 25 BUN 12 Creatinine 0.90 Glucose 113 H Calcium 8.9 Laboratory Tests 10/12/16 10/13/16 22:24 00:11 Lactic Acid 1.2 1.8 - ABG Interpretation ABG results: PT/INR, D-dimer PT 11.3 Seconds (9.4-12.1) 10/12/16 22:24 Consult Discharge Plan - Plan Referrals: Jim beasley MD [Primary Care Provider] - 10/22/16 4:00 pm (Please follow up as schedule...) <Leonardo Ortega - Last Filed: 10/13/16 19:02> Date of Encounter: 10/13/16 - Constitutional Vitals: Temp Pulse Resp BP Pulse Ox 98.0 F 82 16 110/76 94 10/13/16 16:06 10/13/16 16:06 10/13/16 16:06 10/13/16 16:06 10/13/16 16:06 Internal Medicine: Result - Labs CBC & Chem 7: 10/13/16 06:47 10/13/16 06:46 Labs: Short CBC 10/13/16 Range/Units 06:47 WBC 7.5 (4.3-11.1) K/mcL Hgb 12.5 L (12.9-16.9) g/dL Hct 36.0 L (37.5-50.1) % Plt Count 176 (140-400) K/mcL Neutrophils # 6.0 (1.6-8.9) K/mcL BMP 10/13/16 06:46 Sodium 138 Potassium 3.4 L Chloride 106 Carbon Dioxide 25 BUN 12 Creatinine 0.90 Glucose 113 H Calcium 8.9 - ABG Interpretation ABG results: PT/INR, D-dimer PT 11.3 Seconds (9.4-12.1) 10/12/16 22:24
[2016-10-13] MEDS ORDERED: Vancomycin 1,750 MG in D5% in Water 250 ML IVPB SCH (12:00)
[2016-10-13] MEDS ORDERED: Vancomycin 1,500 MG in D5% in Water 250 ML IVPB SCH (12:00)
--- NOTE | 2016-10-13 16:13 | Event Note ---
Date of Encounter: 10/13/16 Time of Encounter: 10:55 Seen and evaluated at bedside 41 M admitted and being managed for LLE cellulitis with lymphangitis and failed O-P therapy No evidence of abscess collection on exam patient is not septic Physical exam: VSS, LLE with erythema up to the groin region o the left. on the LLE laterally there are multiple entry points, erythema, tenderness and swelling , no fluctuancy. Labs and Imaging reviewed Continue current antibiotics, follow ID eval, r/o DVT, obtain LLE doppler, replace potassium Rest of details as in resident physician's documentation of the same day
[2016-10-14] MEDS ORDERED: Vancomycin 1,250 MG in D5% in Water 250 ML IVPB SCH
[2016-10-14] MEDS: *HR* OxyCODONE/APAP 5/325 TABLET PO PRN ×3 (05:21→22:57)
[2016-10-14] MEDS: *HR* Enoxaparin 40 MG/0.4 ML SYRINGE SQ SCH (05:21)
[2016-10-14 05:43] LABS: Basophils % 0.4 %; Eosinophils # 0.2 K/mcL (0.0-0.6); Eosinophils % 2.1 %; Hematocrit 37.5 % (37.5-50.1); Hemoglobin 12.6 g/dL (12.9-16.9); Immature Granulocytes % 0.4 % (0-4); Lymphocytes # 1.5 K/mcL (0.6-4.6); Lymphocytes % 19.6 %; Mean Corpuscular HGB Conc 33.6 g/dL (31.6-35.5); Mean Corpuscular Hemoglobin 29.5 pg (28.0-33.3); Mean Corpuscular Volume 87.8 fL (83.0-100.0); Mean Platelet Volume 10.2 fL (9.4-12.4); Monocytes # 1.1 K/mcL (0.0-1.3); Monocytes % 13.6 %; Platelet Count 218 K/mcL (140-400); Red Blood Count 4.27 M/mcL (4.19-5.50); Red Cell Distribution Width 13.4 % (11.5-14.5); Segmented Neutrophils % 63.9 %
[2016-10-14 05:53] LABS: BUN/Creatinine Ratio 12 (6-26); Blood Urea Nitrogen 10 mg/dL (8-26); Calcium 9.3 mg/dL (8.6-10.8); Carbon Dioxide 29 mEq/L (19-29); Chloride 107 mEq/L (98-109); Glucose 102 mg/dL (70-99); Osmolality,Calculated 291 (280-300); Potassium 4.1 mEq/L (3.5-4.5); Sodium 141 mEq/L (136-145); eGFR For African Americans > 60 (> 60); eGFR For Non-African Americans > 60 (> 60)
[2016-10-14] MEDS: Triamcinolone Acet 0.1% CRM 15 GM TUBE TP SCH ×2 (08:31→22:06)
[2016-10-14] MEDS: Lisinopril 20 MG TABLET PO SCH (08:32)
[2016-10-14] MEDS: Piperacillin/Tazobactam 3.375 GM in D5% in Water (Mini-Bag+) 100 ML IVPB SCH (08:33)
[2016-10-14] MEDS: Vancomycin 1,500 MG in D5% in Water 250 ML IVPB SCH (13:15)
--- NOTE | 2016-10-14 14:18 | Internal Med Progress Note ---
Date of Encounter: 10/14/16 Time of Encounter: 13:30 - Assessment and plan (1) Cellulitis Current Visit: Yes Status: Acute Assessment and plan: Continue intravenous vancomycin. Piero his current area of cellulitis with a skin marker. Follow response. Adjust antibiotics according to his progression. Patient is height is due to need for intravenous antibiotic therapy and patient is at risk of sepsis, septic shock and abscess formation. Qualifiers: Site of cellulitis: extremity Site of cellulitis of extremity: lower extremity Laterality: left Qualified Code(s): L03.116 - Cellulitis of left lower limb (2) HTN (hypertension) Current Visit: Yes Status: Chronic Assessment and plan: Continue current medications. Well-controlled blood pressure. Qualifiers: Hypertension type: essential hypertension Qualified Code(s): I10 - Essential (primary) hypertension - Subjective Interval history: Patient states that he continues to have the redness in the left lower extremity. He also complains of pain that is aggravated with movement and relieved with rest. He denies any discharge. Denies any fever or chills. 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 - Constitutional Vitals: Temp Pulse Resp BP Pulse Ox 98.3 F 78 19 112/69 97 10/14/16 11:29 10/14/16 11:29 10/14/16 11:29 10/14/16 11:29 10/14/16 11:29 General appearance: Present: A&O X 3, pleasant, no acute distress Exam: Gen.: Lying in bed. No acute distress. Chest: Clear to auscultation bilaterally. No adventitious sounds present. CVS: First and second heart sounds present. No murmurs, rubs or gallops. Abdomen: Soft, nontender, obese. Bowel sounds present. No hepatosplenomegaly. Skin: Erythema over the left lower extremity extending from the foot to the knee. Mild tenderness to palpation. No discharge visible. Internal Medicine: Result - Labs CBC & Chem 7: 10/14/16 05:02 10/14/16 05:02 Labs: Short CBC 10/14/16 Range/Units 05:02 WBC 7.7 (4.3-11.1) K/mcL Hgb 12.6 L (12.9-16.9) g/dL Hct 37.5 (37.5-50.1) % Plt Count 218 (140-400) K/mcL Neutrophils # 5.0 (1.6-8.9) K/mcL BMP 10/14/16 05:02 Sodium 141 Potassium 4.1 Chloride 107 Carbon Dioxide 29 BUN 10 Creatinine 0.86 Glucose 102 H Calcium 9.3 - ABG Interpretation ABG results: PT/INR, D-dimer PT 11.3 Seconds (9.4-12.1) 10/12/16 22:24 Consult Discharge Plan - Plan Referrals: Jim Tilley MD [Primary Care Provider] - 10/22/16 4:00 pm (Please follow up as schedule...)
--- NOTE | 2016-10-14 19:25 | Venous Imaging Report ---
LE Venous Duplex Patient Name:Randall Carter Order Number:[id number] Procedure Date:10/13/2016 Date:1975Age:41 yrs Gender:Male Location:[facility] Room #: 2A55 Second Vp Hr Assessment:Mg Gonzalez RN, RDCS Referring MD:Leonardo Ortega MD assistant head cashier:Jim Tilley MD Reading MD:Royce Levi MD Primary Indications:Pain in limb Secondary Indications: Risk Factors Yes/No Smoking Current No Anticoagulants No Previous Vascular Surgery No Hx of DVT No Hx of Chemotherapy No Trauma to Veins No Recent Surgery No Hx of Superficial Phlebitis No Alexander Filter No Impressions: Normal bilateral lower extremity deep and superficial venous exam. Recommendations: Test completed on 10/13/2016 at 1:30:00 pm. Findings Venous Duplex Results: Right: Venous imaging of the lower extremity reveals full patency and normal vessel compressibility of the right distal iliac, right common femoral, right superficial femoral, right popliteal, right posterior tibial, right peroneal, right great saphenous and right lesser saphenous. Doppler signals in the evaluated veins were normal. Left: Venous imaging of the lower extremity reveals full patency and normal vessel compressibility of the left distal iliac, left common femoral, left superficial femoral, left popliteal, left posterior tibial, left peroneal, left great saphenous and left lesser saphenous. Doppler signals in the evaluated veins were normal. Prior Study: No prior study available for comparison. Lower Extremity Venous Duplex Side Vein Compress Spontaneous Flow Augment Diameter (cm) Depth (cm) Right Distal Iliac Normal Yes Phasic Yes Right Common Femoral Normal Yes Phasic Yes Right Superficial Femoral Normal Yes Phasic Yes Right Popliteal Normal Yes Phasic Yes Right Posterior Tibial Normal Yes Phasic Yes Right Peroneal Normal Yes Phasic Yes Right Great Saphenous Normal Yes Phasic Yes Right Lesser Saphenous Normal Yes Phasic Yes Left Distal Iliac Normal Yes Phasic Yes Left Common Femoral Normal Yes Phasic Yes Left Superficial Femoral Normal Yes Phasic Yes Left Popliteal Normal Yes Phasic Yes Left Posterior Tibial Normal Yes Phasic Yes Left Peroneal Normal Yes Phasic Yes Left Great Saphenous Normal Yes Phasic Yes Left Lesser Saphenous Normal Yes Phasic Yes Updated by Royce Levi MD on 10/14/2016 7:20:40 PM electronically signed on 10/14/2016 7:20:50 PM with status of Final
[2016-10-14] MEDS: Mirtazapine 15 MG TABLET PO SCH (22:03)
[2016-10-15] MEDS: Vancomycin 1,500 MG in D5% in Water 250 ML IVPB SCH ×2 (00:33→12:09)
[2016-10-15] MEDS: *HR* Enoxaparin 40 MG/0.4 ML SYRINGE SQ SCH (05:57)
[2016-10-15] MEDS: Lisinopril 20 MG TABLET PO SCH (08:25)
[2016-10-15] MEDS: Triamcinolone Acet 0.1% CRM 15 GM TUBE TP SCH ×2 (08:26→22:21)
--- NOTE | 2016-10-15 14:28 | Internal Med Progress Note ---
<Millie Washburn - Last Filed: 10/15/16 17:45> Date of Encounter: 10/15/16 Time of Encounter: 14:28 - Assessment and plan (1) Cellulitis Current Visit: Yes Status: Acute Assessment and plan: Continue intravenous vancomycin. Pt has history of possible exposure to MRSA Marked area of cellulitis with a skin marker ,seems improved with Abx. Following response. Adjust antibiotics according to his progression. Patient on intravenous antibiotic therapy CT evidence of subcutaneous edema, but no pockets of fluids. PICC placement planned for transition to outpatient Qualifiers: Site of cellulitis: extremity Site of cellulitis of extremity: lower extremity Laterality: left Qualified Code(s): L03.116 - Cellulitis of left lower limb (2) Infection, fungal, left foot Current Visit: Yes Status: Acute Assessment and plan: On PE erythematous erosions or scales between the toes b/w 2nd and fourth digital interspaces Pt not complaining of pain or pruititis Clinical presentation suggestive of fungal foot infection and may have attributed to increased risk of current cellulitis Indication for topical ketocanazole (3) Rash of hands Current Visit: Yes Status: Chronic Assessment and plan: Rash, appears with involvement of dermis May be 2/2 to deep tissue infection vs cutaneous lymphoma vs hypersensitivity reaction Skin Punch biopsy performed Pt informed of risk and informed consent obtained Tolerated procedure well Biopsy specimen sent to pathology (4) HTN (hypertension) Current Visit: Yes Status: Chronic Assessment and plan: Continue current medications. Well-controlled blood pressure. Qualifiers: Hypertension type: essential hypertension Qualified Code(s): I10 - Essential (primary) hypertension - Time Spent With Patient Greater than 35 minutes - Subjective Interval history: No acute events overnight. Pt states that site of redness is tender to palpitation. No other complaints. - Constitutional Vitals: Temp Pulse Resp BP Pulse Ox 98.8 F 80 18 129/90 94 10/15/16 10:36 10/15/16 10:36 10/15/16 10:36 10/15/16 10:36 10/15/16 10:36 General appearance: Present: A&O X 3, pleasant, no acute distress - Head Head exam: Present: atraumatic, normocephalic - Respiratory Respiratory exam: Absent: accessory muscle use, decreased breath sounds, rales, respiratory distress - Cardiovascular Cardiovascular exam: Present: systolic murmur. Absent: JVD, tachycardia - Expanded Upper Extremities Exam Hand wrist exam: Present: erythema (L: serpentigous red rash on L dorsum of hand - approximate 5-7 cm in area ) - Expanded Lower Extremities Exam Lower Leg exam: Present: tenderness (L: blisters on lower left lateral leg, appears nonpurulent, redness appears receeded from original skin demarcation, circumferential erythema ) Foot/Toe exam: Present: erythema (erythematous erosions or scales between the toes) Internal Medicine: Result - Labs CBC & Chem 7: 10/14/16 05:02 10/14/16 05:02 - ABG Interpretation ABG results: PT/INR, D-dimer PT 11.3 Seconds (9.4-12.1) 10/12/16 22:24 - Impressions Impressions Lower Extremity CT 10/15/16 12:15 IMPRESSION: Diffuse nonspecific subcutaneous edema. Cellulitis is a consideration. D/ / 10/15/2016 13:49:36 Huang Andersen MD / yvonne Interpreting Provider: Huang Andersen MD Consult Discharge Plan - Plan Referrals: Jim Tilley MD [Primary Care Provider] - 10/22/16 4:00 pm (Please follow up as schedule...) <Moise Hernandez - Last Filed: 10/15/16 18:21> Date of Encounter: 10/15/16 - Assessment and plan (1) Cellulitis Current Visit: Yes Status: Acute Qualifiers: Site of cellulitis: extremity Site of cellulitis of extremity: lower extremity Laterality: left Qualified Code(s): L03.116 - Cellulitis of left lower limb (2) Infection, fungal, left foot Current Visit: Yes Status: Acute (3) HTN (hypertension) Current Visit: Yes Status: Chronic Qualifiers: Hypertension type: essential hypertension Qualified Code(s): I10 - Essential (primary) hypertension (4) Rash of hands Current Visit: Yes Status: Chronic (5) GERD (gastroesophageal reflux disease) Current Visit: Yes Status: Chronic Qualifiers: Esophagitis presence: without esophagitis Qualified Code(s): K21.9 - Gastro -esophageal reflux disease without esophagitis (6) Lumbar stenosis Current Visit: No Status: Chronic - Constitutional Vitals: Temp Pulse Resp BP Pulse Ox 98.8 F 82 18 141/92 100 10/15/16 16:54 10/15/16 16:54 10/15/16 16:54 10/15/16 16:54 10/15/16 16:54 Internal Medicine: Result - Labs CBC & Chem 7: 10/14/16 05:02 10/14/16 05:02 - ABG Interpretation ABG results: PT/INR, D-dimer PT 11.3 Seconds (9.4-12.1) 10/12/16 22:24 - Impressions Impressions Lower Extremity CT 10/15/16 12:15 IMPRESSION: Diffuse nonspecific subcutaneous edema. Cellulitis is a consideration. D/ / 10/15/2016 13:49:36 Huang Andersen MD / yvonne Interpreting Provider: Huang Andersen MD - Attending Attestation I examined this patient and my medical decision-making was reviewed with the Resident Physician on 10/15/16. I agree with the documented findings, disposition and treatment plan as described except to the extent set forth below. Mr. Carter is currently admitted for LLE cellulitis. He remains moderate to high risk due to potential for worsening infectious status. Mr. Carter is feeling OK. His leg is maybe a little better. No fever or chills. No CP or SOB. He also is complaining of a rash on his L hand. Exam Alert. Comfortable LLE with significant erythema and blistering. Seems to be a little better ( receding). Raised rash on L dorsum of hand as well. Tinea pedis noted. No wheeze I/P 1. Cellulitis LLE - add Zosyn 2. Rash on hand - biopsy today 3. Tinea pedis Further diagnoses and plan as above.
[2016-10-15] MEDS ORDERED: Lidocaine -MPF 1% 5 ML AMPUL INFILT ONE (15:06)
[2016-10-15] MEDS: Ketoconazole 2% CRM 15 GM TUBE TP SCH (16:37)
[2016-10-15] MEDS: Piperacillin/Tazobactam 3.375 GM in D5% in Water (Mini-Bag+) 100 ML IVPB SCH (16:46)
[2016-10-15] MEDS ORDERED: Lidocaine -MPF 1% 2 ML VIAL INFILT ONE (17:15)
--- NOTE | 2016-10-15 17:43 | Procedure Note ---
<Millie Washburn - Last Filed: 10/15/16 17:40> Date of procedure: 10/15/16 Pre-op diagnosis: Skin rash Post-op diagnosis: same Procedure: Skin punch biopsy The area surrounding the skin lesion was prepared and draped in the usual sterile manner. The lesion was removed in the usual manner by the biopsy method noted above. Hemostasis was assured. The patient tolerated the procedure well. Closure: Simple interrupted suture, 4-0 Followup: The patient tolerated the procedure well without complications. Standard post-procedure care is explained. Anesthesia: local Surgeon: Millie Washburn Public Policy Manager: Leonard Brownlee Estimated blood loss (cc): 10 IV fluids (cc): 0 Urine output (cc): 0 Pathology: other (Skin punch biopys speciment) Condition: stable Disposition: no change <Moise Hernandez - Last Filed: 10/15/16 18:22> - Attending Attestation I examined this patient and my medical decision-making was reviewed with the Resident Physician on 10/15/16. I agree with the documented findings, disposition and treatment plan as described except to the extent set forth below. I supervised procedure and it was greater than 5 minutes.
[2016-10-15] MEDS: Mirtazapine 15 MG TABLET PO SCH (22:21)
[2016-10-15] MEDS: *HR* OxyCODONE/APAP 5/325 TABLET PO PRN (22:27)
[2016-10-16] MEDS: Vancomycin 1,750 MG in D5% in Water 500 ML IVPB SCH ×2 (01:20→14:10)
[2016-10-16] MEDS: Piperacillin/Tazobactam 3.375 GM in D5% in Water (Mini-Bag+) 100 ML IVPB SCH ×3 (01:21→16:11)
[2016-10-16] MEDS: *HR* OxyCODONE/APAP 5/325 TABLET PO PRN ×2 (03:36→16:10)
[2016-10-16 03:45] LABS: Basophils % 0.4 %; Eosinophils # 0.2 K/mcL (0.0-0.6); Eosinophils % 1.7 %; Hematocrit 37.9 % (37.5-50.1); Hemoglobin 12.2 g/dL (12.9-16.9); Lymphocytes # 1.9 K/mcL (0.6-4.6); Lymphocytes % 18.9 %; Mean Corpuscular HGB Conc 32.2 g/dL (31.6-35.5); Mean Corpuscular Hemoglobin 28.1 pg (28.0-33.3); Mean Corpuscular Volume 87.3 fL (83.0-100.0); Mean Platelet Volume 9.5 fL (9.4-12.4); Monocytes # 1.1 K/mcL (0.0-1.3); Monocytes % 10.9 %; Neutrophils # 6.6 K/mcL (1.6-8.9); Platelet Count 270 K/mcL (140-400); Red Blood Count 4.34 M/mcL (4.19-5.50); Segmented Neutrophils % 67.1 %
[2016-10-16 03:53] LABS: BUN/Creatinine Ratio 19 (6-26); Blood Urea Nitrogen 15 mg/dL (8-26); Calcium 9.3 mg/dL (8.6-10.8); Carbon Dioxide 26 mEq/L (19-29); Chloride 107 mEq/L (98-109); Glucose 115 mg/dL (70-99); Osmolality,Calculated 292 (280-300); Potassium 3.9 mEq/L (3.5-4.5); Sodium 140 mEq/L (136-145); eGFR For African Americans > 60 (> 60); eGFR For Non-African Americans > 60 (> 60)
[2016-10-16] MEDS: *HR* Enoxaparin 40 MG/0.4 ML SYRINGE SQ SCH (05:51)
[2016-10-16] MEDS: Ketoconazole 2% CRM 15 GM TUBE TP SCH (09:16)
[2016-10-16] MEDS: Triamcinolone Acet 0.1% CRM 15 GM TUBE TP SCH (09:17)
[2016-10-16] MEDS: Lisinopril 20 MG TABLET PO SCH (09:17)
--- NOTE | 2016-10-16 09:30 | Discharge Summary ---
Date of Encounter: 10/16/16 Time of Encounter: 08:30 - Discharge Diagnosis (1) Cellulitis Priority: Primary Status: Acute Qualifiers: Site of cellulitis: extremity Site of cellulitis of extremity: lower extremity Laterality: left Qualified Code(s): L03.116 - Cellulitis of left lower limb (2) Infection, fungal, left foot Priority: Secondary Status: Chronic (3) HTN (hypertension) Priority: Secondary Status: Chronic Qualifiers: Hypertension type: essential hypertension Qualified Code(s): I10 - Essential (primary) hypertension (4) Rash of hands Priority: Secondary Status: Chronic (5) GERD (gastroesophageal reflux disease) Priority: Secondary Status: Chronic Qualifiers: Esophagitis presence: without esophagitis Qualified Code(s): K21.9 - Gastro -esophageal reflux disease without esophagitis (6) Lumbar stenosis Priority: Secondary Status: Chronic (7) Hypokalemia Priority: Secondary Status: Resolved (8) Obesity (BMI 35.0-39.9 without comorbidity) Priority: Secondary Status: Chronic - Discharge Medications Prescriptions: Amoxicillin/Potassium Clav [Augmentin Xr 1,000-62.5 Tab] 1 each PO Q12HR #6 tab.er.12h Doxycycline 100 mg PO BID #21 capsule Ketoconazole 2% CRM [Nizoral Cream] 1 appl TP DAILY #30 gm Mupirocin [Bactroban Oint] 1 appl TP BID #22 g Xskdtzdegiqc-Vluy-Ytcdhtrc,Iso [Zosyn 3.375 gm/50 ml Galaxy] 3.375 gm IV Q8H # 21 froz.piggy Home Medications: Carvedilol 12.5 mg PO BID 03/02/16 [History] Cyclobenzaprine HCl 5 mg PO TID 03/02/16 [History] Duloxetine HCl [Cymbalta] 60 mg PO DAILY 03/02/16 [History] Ibuprofen [Motrin] 800 mg PO Q8HR PRN 03/02/16 [History] Lisinopril [Zestril] 40 mg PO DAILY 03/02/16 [History] Omeprazole [PriLOSEC] 40 mg PO DAILY 03/02/16 [History] Mirtazapine [Remeron] 15 mg PO HS 10/12/16 [History] Amoxicillin/Potassium Clav [Augmentin Xr 1,000-62.5 Tab] 1 each PO Q12HR #6 tab.er.12h 10/16/16 [Rx] Doxycycline 100 mg PO BID #21 capsule 10/16/16 [Rx] Ketoconazole 2% CRM [Nizoral Cream] 1 appl TP DAILY #30 gm 10/16/16 [Rx] Mupirocin [Bactroban Oint] 1 appl TP BID #22 g 10/16/16 [Rx] Ebhmcwhpifmr-Grzu-Adoeocap,Iso [Zosyn 3.375 gm/50 ml Galaxy] 3.375 gm IV Q8H # 21 froz.piggy 10/16/16 [Rx] Allergies/Adverse Reactions: 3 Allergy/AdvReac Type Severity Reaction Status Date / Time No Known Allergies Allergy Verified 03/02/16 09:51 Procedures/tests Complete & Pending: Procedures Performed prior 72 hours Category Date Time Status CT lower leg LT wo con [CT] Routine Cat Scan 10/15/16 12:15 Completed - Notes to Outpatient Provider Pt had punch biopsy of L hand rash and results pending. Pt has RUE PICC line. Plan was to send on IV Zosyn. Unable to arrange and he insists on leaving. PO Augmentin ordered till Tuesday and PO Doxy for 10 days. Home care to monitor PICC and leg. May ultimately not need IV Zosyn (plan to start Tueday when approved). Date of admission: 10/13/16 03:05 Primary care physician: Jim Tilley MD Consults: 10/15/16 16:12 Consult to Invasive Line Access Team [CONS] Routine Reason for Consult: Picc Line Insertion Line Type: EPIV Discharging clinician: Moise Hernandez Anticipated date of discharge: 10/16/16 - Patient Status Disposition: Home Health Service Condition: Good Functional capacity at discharge: independent ambulation Overall status at discharge: patient is progressing back to baseline - Discharge Instructions Instructions: Cellulitis (DC), Hypokalemia (DC), Chronic Hypertension (DC) Follow Up With: Jim Tilley MD [Primary Care Provider] - 10/22/16 4:00 pm (Please follow up as schedule...) - Diet and Activity Activity: increase activity as tolerated Diet: advance to your usual diet Hospital course: Mr. Carter is a 41 year old male with hx of HTN and recurrent LLE cellulitis presented to ED with complaints of red and swollen L leg. He had been on Keflex per his PCP but was not getting any better. He was admitted for further evaluation and treatment. Mr. Carter was admitted to med floor. He was started on IV abx and continued on his home medications. Abx were adjusted and he was maintained on IV Vancomycin. He did not have much improvement in his leg and Zosyn was restarted on 10/15. PICC line was placed for plans for discharge on IV abx if he had some improvement. On 10/15 he also had a biopsy of a chronic rash on the dorsum of his L hand. On 10/16 his leg was improving with current abx. Attempts were made to arrange home Zosyn as patient was insistent he needed to get home to care for his parents. We have been unable to set up Zosyn. This afternoon his leg is even more improved. He agrees to stay for another dose of Zosyn. I have explained to him that staying would be his best option but I know he will return if worsens. I have prescribed Augmentin 1000mg q12h ( 6 tabs) which will cover most things but Pseudomonas and Doxycycline 100mg BID ( 21tab to start tonight). Home care has been arranged to monitor PICC line and leg and to start Zosyn on Tuesday (if he does not continue to improve with PO Augmentin). He has follow up appt with PCP on 10/22. I have had a face to face with patient and he is in need of home care to observe LLE cellulitis and observe and care for RUE PICC line. - Time Spent with Patient Total time spent providing and/or coordinating discharge services: 45min - Constitutional Vitals: Temp Pulse Resp BP Pulse Ox 97.9 F 88 15 127/96 94 10/16/16 07:10 10/16/16 07:10 10/16/16 07:10 10/16/16 07:10 10/16/16 07:10 General appearance: Present: A&O X 3, pleasant, no acute distress, answers questions appropriately - Head Head exam: Present: normocephalic - Eye Eye exam: Present: EOMI, conjuntiva pink - ENT ENT exam: Present: mucous membranes dry - Respiratory Respiratory exam: Present: CTAB. Absent: rales, rhonchi, wheezes - Cardiovascular Cardiovascular exam: Present: RRR. Absent: tachycardia - GI/Abdominal GI/Abdominal exam: Present: soft. Absent: tenderness - Extremities Exam Extremities exam: Present: warm (LLE with improving erythema and warm.) - Neurological Exam Neurological exam: Present: alert, oriented X3, no focal deficits - Skin Skin exam: Present: dry, warm
--- NOTE | 2016-10-16 14:50 | Physician Discharge Referral ---
Home Health/Hosp Referral Info Transfer to: Home Health Provider in Charge Post Discharge: PCP - Diagnosis (1) Cellulitis Priority: Primary Status: Acute (2) Infection, fungal, left foot Priority: Secondary Status: Chronic (3) HTN (hypertension) Priority: Secondary Status: Chronic (4) Rash of hands Priority: Secondary Status: Chronic (5) GERD (gastroesophageal reflux disease) Priority: Secondary Status: Chronic (6) Lumbar stenosis Priority: Secondary Status: Chronic - Respiratory Orders None Smoking Cessation: Smoking cessation has been advised. For more information, call the [employer] Quit Line at [phone]. - Diet/Nutrition Diet/Nutrition Orders: Cardiac - Activity Activity Orders: Up ad edda - Services Needed Following services are medically necessary services: Care Home Care Orders: Please observe and care for RUE PICC line and observe the status of cellulitis of LLE. Please check PICC for patency Tuesday and Tuesday, Oct 3 and . On Tuesday please start Zosyn 3.375g IVPB q8h after insurance approval. My number: [phone] - Transfer Medications Prescriptions: Amoxicillin/Potassium Clav [Augmentin Xr 1,000-62.5 Tab] 1 each PO Q12HR #6 tab.er.12h Doxycycline 100 mg PO BID #21 capsule Ketoconazole 2% CRM [Nizoral Cream] 1 appl TP DAILY #30 gm Mupirocin [Bactroban Oint] 1 appl TP BID #22 g Jlaftdrboleg-Bbdz-Esrhekug,Iso [Zosyn 3.375 gm/50 ml Galaxy] 3.375 gm IV Q8H # 21 froz.piggy Home Medications: Carvedilol 12.5 mg PO BID 03/02/16 [History] Cyclobenzaprine HCl 5 mg PO TID 03/02/16 [History] Duloxetine HCl [Cymbalta] 60 mg PO DAILY 03/02/16 [History] Ibuprofen [Motrin] 800 mg PO Q8HR PRN 03/02/16 [History] Lisinopril [Zestril] 40 mg PO DAILY 03/02/16 [History] Omeprazole [PriLOSEC] 40 mg PO DAILY 03/02/16 [History] Mirtazapine [Remeron] 15 mg PO HS 10/12/16 [History] Amoxicillin/Potassium Clav [Augmentin Xr 1,000-62.5 Tab] 1 each PO Q12HR #6 tab.er.12h 10/16/16 [Rx] Doxycycline 100 mg PO BID #21 capsule 10/16/16 [Rx] Ketoconazole 2% CRM [Nizoral Cream] 1 appl TP DAILY #30 gm 10/16/16 [Rx] Mupirocin [Bactroban Oint] 1 appl TP BID #22 g 10/16/16 [Rx] Qnpiygxijmsu-Bijj-Jzdkhzva,Iso [Zosyn 3.375 gm/50 ml Galaxy] 3.375 gm IV Q8H # 21 froz.piggy 10/16/16 [Rx] Allergies/Adverse Reactions: 3 Allergy/AdvReac Type Severity Reaction Status Date / Time No Known Allergies Allergy Verified 03/02/16 09:51 Certification: Further, I certify that my clinical findings support that this patient is homebound (i.e. absences from home require considerable and taxing effort and are for medical reasons or [employer] services or infrequently or short duration when for other reasons) because: Homebound Reason: Absences from home are contraindicated except to recieve medical care Attestation: My signature below is to certify that this patient is under my care and that I, or nurse practitioner, or a physician's assistant professor of biology working with me, has a face-to -face encounter with this patient.
[2016-10-16 16:07] VITALS: BP 157/83
[2016-10-16] MEDS ORDERED: Aminoglycoside Consult 1 EACH MC ONE (17:18)
== END 2016-10-16 17:19 | disposition home health service (06) | DRG 383 ==
LOC: EMEROO 20:25 → 2ANU 20:25 → SUATTDRO 10-13 03:05
PROVIDERS: ADMIT Internal Medicine; ATTEND Internal Medicine

== ENCOUNTER 2018-12-24 20:25 | Observation (INO) ==
[2018-12-24 20:58] LABS: Bilirubin,Urine Moderate (Negative); Blood,Urine Large (Negative); Clarity,Urine Turbid (Clear); Color,Urine Red (Yellow); Glucose,Urine (UA) Normal (Normal); Ketones,Urine Trace mg/dL (Negative); Leukocyte Esterase,Urine Small (Negative); Nitrite,Urine Negative (Negative); PH,Urine 5.5 pH Units (5.0-8.0); Protein,Urine 100 mg/dL (Neg-Trace); Specific Gravity,Urine 1.026 (1.010-1.025); Urobilinogen,Urine Normal (Normal)
[2018-12-24 20:59] LABS: Bacteria,Urine None Seen per hpf (None-Few); Hyaline Casts,Urine None Seen per lpf (None-Few); RBC,Urine TNTC per hpf (0-3); Squamous Epithelial Cell,Urine Moderate per lpf (None-Few); WBC,Urine 15-30 per hpf (0-3)
[2018-12-24] MEDS ORDERED: *HR* FentaNYL (PF) 100 MCG/2 ML VIAL IVP ONE (21:03)
[2018-12-24 21:14] LABS: Basophils # 0.1 K/mcL (0.0-0.2); Basophils % 0.6 %; Eosinophils # 0.1 K/mcL (0.0-0.6); Eosinophils % 1.3 %; Hematocrit 44.3 % (37.5-50.1); Hemoglobin 15.2 g/dL (12.9-16.9); Immature Granulocytes % 0.3 % (0-4); Lymphocytes % 20.6 %; Mean Corpuscular HGB Conc 34.3 g/dL (31.6-35.5); Mean Corpuscular Hemoglobin 30.8 pg (28.0-33.3); Mean Corpuscular Volume 89.9 fL (83.0-100.0); Mean Platelet Volume 9.5 fL (9.4-12.4); Monocytes # 0.8 K/mcL (0.0-1.3); Monocytes % 8.4 %; Neutrophils # 6.6 K/mcL (1.6-8.9); Platelet Count 245 K/mcL (140-400); Red Blood Count 4.93 M/mcL (4.19-5.50); Red Cell Distribution Width 12.6 % (11.5-14.5); Segmented Neutrophils % 68.8 %; White Blood Count 9.6 K/mcL (4.3-11.1)
[2018-12-24 21:33] LABS: Alanine Aminotransferase 27 Units/L (7-52); Albumin 4.4 g/dL (3.5-5.7); Albumin/Globulin Ratio 1.6 (1.1-2.2); Alkaline Phosphatase 94 Units/L (34-104); Aspartate Amino Transferase 43 Units/L (13-39); BUN/Creatinine Ratio 20 (6-26); Bilirubin,Total 0.5 mg/dL (0.3-1.0); Blood Urea Nitrogen 18 mg/dL (6-20); Calcium 9.6 mg/dL (8.6-10.3); Carbon Dioxide 25 mEq/L (23-29); Chloride 103 mEq/L (98-107); Globulin 2.7 g/dL (2.4-3.5); Glucose 137 mg/dL (70-105); Osmolality,Calculated 294 (280-300); Potassium 3.4 mEq/L (3.5-5.1); Sodium 140 mEq/L (136-145); Total Protein 7.1 g/dL (6.4-8.9); eGFR For African Americans > 60 (> 60); eGFR For Non-African Americans > 60 (> 60)
[2018-12-24] MEDS ORDERED: Ketorolac 30 MG/ML VIAL IVP ONE (23:13)
[2018-12-24] MEDS ORDERED: *HR* HYDROmorphone (PF) 1 MG/ML SYRINGE IVP ONE (23:13)
[2018-12-24] MEDS: Ringers Solution, Lactated 1,000 ML IVC SCH (23:53)
[2018-12-25] MEDS ORDERED: Ondansetron 4 MG/2 ML VIAL IVP PRN (00:18)
[2018-12-25] MEDS: Ringers Solution, Lactated 1,000 ML IVC SCH ×3 (05:03→23:51)
[2018-12-25] MEDS: Ketorolac 30 MG/ML VIAL IVP PRN ×2 (05:05→21:55)
[2018-12-25] MEDS: amLODIPine 5 MG TABLET PO SCH (08:00)
[2018-12-25] MEDS: Lisinopril 20 MG TABLET PO SCH (08:00)
[2018-12-25] MEDS ORDERED: *HR* OxyCODONE Immed Rel 5 MG TABLET PO PRN (09:08)
[2018-12-25] MEDS: *HR* HYDROmorphone (PF) 1 MG/ML SYRINGE IVP PRN ×4 (10:36→23:51)
[2018-12-26] MEDS: *HR* HYDROmorphone (PF) 1 MG/ML SYRINGE IVP PRN ×4 (04:25→15:37)
[2018-12-26 06:03] LABS: BUN/Creatinine Ratio 18 (6-26); Blood Urea Nitrogen 16 mg/dL (6-20); Calcium 9.2 mg/dL (8.6-10.3); Carbon Dioxide 30 mEq/L (23-29); Chloride 103 mEq/L (98-107); Glucose 102 mg/dL (70-105); Osmolality,Calculated 289 (280-300); Potassium 4.3 mEq/L (3.5-5.1); Sodium 139 mEq/L (136-145); eGFR For African Americans > 60 (> 60); eGFR For Non-African Americans > 60 (> 60)
[2018-12-26] MEDS: Lisinopril 20 MG TABLET PO SCH (07:36)
[2018-12-26] MEDS: amLODIPine 5 MG TABLET PO SCH (07:36)
[2018-12-26] MEDS ORDERED: Isovue-300 50ML VIAL ONE (08:28)
[2018-12-26] MEDS ORDERED: *HR* FentaNYL (PF) 100 MCG/2 ML VIAL ONE (09:14)
[2018-12-26] MEDS ORDERED: *HR* Propofol 200 MG/20 ML VIAL IVP ONE (09:14)
[2018-12-26] MEDS ORDERED: Ondansetron 4 MG/2 ML VIAL ONE (09:16)
[2018-12-26] MEDS ORDERED: Dexamethasone 4 MG/ML VIAL ONE (09:16)
[2018-12-26] MEDS ORDERED: Lidocaine -MPF 2% 2 ML VIAL ONE (09:16)
[2018-12-26] MEDS ORDERED: ceFAZolin 3,000 MG in Water for inj. (sterile) 30 ML IVP ONE (09:25)
[2018-12-26] MEDS ORDERED: Ringers Solution, Lactated 1,000 ML IVC SCH (10:42)
[2018-12-26] MEDS ORDERED: Ondansetron 4 MG/2 ML VIAL IVP PRN (10:42)
[2018-12-26] MEDS ORDERED: Ketorolac 30 MG/ML VIAL IVP PRN (10:42)
[2018-12-26 15:27] VITALS: BP 130/82
[2018-12-27] MEDS ORDERED: amLODIPine 5 MG TABLET PO SCH (09:00)
[2018-12-27] MEDS ORDERED: Lisinopril 20 MG TABLET PO SCH (09:00)
== END 2018-12-26 18:50 | disposition home or self-care (01) ==
LOC: EMEROOARM 20:25 → 3ANU 20:25 → SUATTDRO 22:23 → 3ANU 23:28
PROVIDERS: ADMIT Internal Medicine; ATTEND Internal Medicine

== ENCOUNTER 2019-02-25 12:27 | Observation (INO) ==
[2019-02-25] MEDS ORDERED: Acetaminophen 325 MG TABLET PO ONE (12:49)
[2019-02-25] MEDS ORDERED: 0.9 % Sodium Chloride 1,000 ML IVC ONE (12:49)
[2019-02-25 13:21] LABS: Basophils # 0.1 K/mcL (0.0-0.2); Basophils % 0.8 %; Eosinophils % 0.3 %; Hematocrit 46.6 % (37.5-50.1); Hemoglobin 15.8 g/dL (12.9-16.9); Immature Granulocytes % 0.4 % (0-4); Lymphocytes # 1.2 K/mcL (0.6-4.6); Lymphocytes % 16.9 %; Mean Corpuscular HGB Conc 33.9 g/dL (31.6-35.5); Mean Corpuscular Hemoglobin 29.4 pg (28.0-33.3); Mean Corpuscular Volume 86.6 fL (83.0-100.0); Mean Platelet Volume 9.6 fL (9.4-12.4); Monocytes # 1.4 K/mcL (0.0-1.3); Monocytes % 18.7 %; Neutrophils # 4.5 K/mcL (1.6-8.9); Platelet Count 225 K/mcL (140-400); Red Blood Count 5.38 M/mcL (4.19-5.50); Red Cell Distribution Width 12.4 % (11.5-14.5); Segmented Neutrophils % 62.9 %; White Blood Count 7.2 K/mcL (4.3-11.1)
[2019-02-25 13:22] LABS: Platelet Estimate Normal (Normal)
[2019-02-25 13:23] LABS: Bilirubin,Urine Negative (Negative); Blood,Urine Negative (Negative); Clarity,Urine Clear (Clear); Color,Urine Yellow (Yellow); Glucose,Urine (UA) Normal (Normal); Ketones,Urine Negative (Negative); Leukocyte Esterase,Urine Negative (Negative); Nitrite,Urine Negative (Negative); Protein,Urine Negative (Neg-Trace); Specific Gravity,Urine 1.016 (1.010-1.025); Urobilinogen,Urine Normal (Normal)
[2019-02-25 13:29] LABS: INR 1.1
[2019-02-25 13:38] LABS: BUN/Creatinine Ratio 16 (6-26); Blood Urea Nitrogen 16 mg/dL (6-20); Calcium 9.8 mg/dL (8.6-10.3); Carbon Dioxide 27 mEq/L (23-29); Chloride 97 mEq/L (98-107); Glucose 96 mg/dL (70-105); Osmolality,Calculated 277 (280-300); Potassium 3.9 mEq/L (3.5-5.1); Sodium 133 mEq/L (136-145); eGFR For African Americans > 60 (> 60); eGFR For Non-African Americans > 60 (> 60)
[2019-02-25] MEDS ORDERED: Naloxone 0.4 MG/ML INJ IVP PRN (15:07)
[2019-02-25] MEDS ORDERED: Acetaminophen 325 MG TABLET PO PRN (15:15)
[2019-02-25] MEDS ORDERED: Vancomycin 1,750 MG in 0.9 % Sodium Chloride 250 ML IVPB SCH (16:00)
[2019-02-25] MEDS ORDERED: Aminoglycoside Consult 1 EACH MC ONE (18:02)
[2019-02-25] MEDS: Ketorolac 15 MG/ML VIAL IVP PRN (19:30)
[2019-02-25] MEDS: Ringers Solution, Lactated 1,000 ML IVC SCH (19:30)
[2019-02-25] MEDS ORDERED: *HR* HYDROcodone/Acet 5/325 mg TABLET PO ONE (22:02)
[2019-02-26] MEDS: Ketorolac 15 MG/ML VIAL IVP PRN ×2 (04:22→10:24)
[2019-02-26 07:22] LABS: Basophils % 0.8 %; Eosinophils # 0.1 K/mcL (0.0-0.6); Eosinophils % 1.8 %; Hematocrit 39.4 % (37.5-50.1); Immature Granulocytes % 0.5 % (0-4); Lymphocytes # 1.7 K/mcL (0.6-4.6); Lymphocytes % 44.2 %; Mean Corpuscular Hemoglobin 30.1 pg (28.0-33.3); Mean Platelet Volume 10.6 fL (9.4-12.4); Monocytes # 0.8 K/mcL (0.0-1.3); Monocytes % 21.7 %; Neutrophils # 1.2 K/mcL (1.6-8.9); Platelet Count 160 K/mcL (140-400); Red Blood Count 4.58 M/mcL (4.19-5.50); Red Cell Distribution Width 12.4 % (11.5-14.5); White Blood Count 3.8 K/mcL (4.3-11.1)
[2019-02-26 07:24] LABS: Hemoglobin 13.8 g/dL (12.9-16.9)
[2019-02-26 07:52] LABS: BUN/Creatinine Ratio 23 (6-26); Blood Urea Nitrogen 17 mg/dL (6-20); Calcium 8.5 mg/dL (8.6-10.3); Carbon Dioxide 25 mEq/L (23-29); Chloride 105 mEq/L (98-107); Glucose 91 mg/dL (70-105); Osmolality,Calculated 287 (280-300); Potassium 4.4 mEq/L (3.5-5.1); Sodium 138 mEq/L (136-145); eGFR For African Americans > 60 (> 60); eGFR For Non-African Americans > 60 (> 60)
[2019-02-26 08:47] LABS: Estimated Average Glucose 108 mg/dl
[2019-02-26] MEDS: Ringers Solution, Lactated 1,000 ML IVC SCH (09:10)
[2019-02-26] MEDS: Piperacillin/Tazobactam 3.375 GM in 0.9 % Sodium Chloride Mini Bag 100 ML IVPB SCH (16:11)
[2019-02-27] MEDS: Ketorolac 15 MG/ML VIAL IVP PRN ×2 (00:17→12:11)
[2019-02-27] MEDS: Piperacillin/Tazobactam 3.375 GM in 0.9 % Sodium Chloride Mini Bag 100 ML IVPB SCH ×2 (00:17→09:48)
[2019-02-27 03:20] LABS: Basophils % 0.8 %; Eosinophils # 0.2 K/mcL (0.0-0.6); Hematocrit 46.1 % (37.5-50.1); Hemoglobin 14.9 g/dL (12.9-16.9); Immature Granulocytes % 0.3 % (0-4); Lymphocytes # 1.7 K/mcL (0.6-4.6); Mean Corpuscular HGB Conc 32.3 g/dL (31.6-35.5); Mean Corpuscular Hemoglobin 29.6 pg (28.0-33.3); Mean Corpuscular Volume 91.5 fL (83.0-100.0); Mean Platelet Volume 10.2 fL (9.4-12.4); Monocytes # 0.4 K/mcL (0.0-1.3); Monocytes % 10.8 %; Neutrophils # 1.7 K/mcL (1.6-8.9); Platelet Count 212 K/mcL (140-400); Red Blood Count 5.04 M/mcL (4.19-5.50); Red Cell Distribution Width 12.4 % (11.5-14.5); Segmented Neutrophils % 41.1 %
[2019-02-27 03:40] LABS: BUN/Creatinine Ratio 16 (6-26); Blood Urea Nitrogen 14 mg/dL (6-20); Calcium 9.3 mg/dL (8.6-10.3); Carbon Dioxide 27 mEq/L (23-29); Chloride 104 mEq/L (98-107); Glucose 94 mg/dL (70-105); Osmolality,Calculated 290 (280-300); Phosphorous 3.5 mg/dL (2.7-4.5); Potassium 4.1 mEq/L (3.5-5.1); Sodium 140 mEq/L (136-145); eGFR For African Americans > 60 (> 60); eGFR For Non-African Americans > 60 (> 60)
[2019-02-27 07:52] VITALS: BP 130/84
== END 2019-02-27 15:25 | disposition home or self-care (01) ==
LOC: 3BNU 12:27 → EMEROOARM 12:27 → SUATTDRO 18:01 → 3BNU 18:25
PROVIDERS: ADMIT Internal Medicine; ATTEND Internal Medicine

== ENCOUNTER 2020-09-22 04:46 | Inpatient (IN) ==
[2020-09-22] MEDS ORDERED: Ketorolac 15 MG/ML VIAL IVP ONE (05:18)
[2020-09-22] MEDS ORDERED: 0.9 % Sodium Chloride 1,000 ML IVC ONE (05:18)
[2020-09-22] MEDS ORDERED: *HR* HYDROcodone/Acet 5/325 mg TABLET PO ONE (05:18)
[2020-09-22 05:45] LABS: Basophils % 0.4 %; Eosinophils # 0.1 K/mcL (0.0-0.6); Eosinophils % 1.5 %; Hematocrit 37.4 % (37.5-50.1); Hemoglobin 12.9 g/dL (12.9-16.9); Immature Granulocytes % 0.3 % (0-4); Lymphocytes # 1.3 K/mcL (0.6-4.6); Lymphocytes % 17.7 %; Mean Corpuscular HGB Conc 34.5 g/dL (31.6-35.5); Mean Platelet Volume 9.8 fL (9.4-12.4); Monocytes # 0.9 K/mcL (0.0-1.3); Monocytes % 12.4 %; Neutrophils # 4.9 K/mcL (1.6-8.9); Platelet Count 230 K/mcL (140-400); Red Cell Distribution Width 12.4 % (11.5-14.5); Segmented Neutrophils % 67.7 %; White Blood Count 7.2 K/mcL (4.3-11.1)
[2020-09-22] MEDS ORDERED: Vancomycin 1,750 MG/517.5 ML IV.SOLN IVPB ONE (06:00)
[2020-09-22] MEDS ORDERED: Melatonin 3 MG TABLET PO PRN (06:08)
[2020-09-22] MEDS ORDERED: Acetaminophen 325 MG TABLET PO PRN (06:08)
[2020-09-22] MEDS ORDERED: Ondansetron 4 MG/2 ML VIAL IVP PRN (06:08)
[2020-09-22] MEDS ORDERED: Naloxone 0.4 MG/ML INJ IVP PRN (06:08)
[2020-09-22 06:28] LABS: Alanine Aminotransferase 34 Units/L (7-52); Albumin 4.2 g/dL (3.5-5.7); Albumin/Globulin Ratio 1.6 (1.1-2.2); Alkaline Phosphatase 72 Units/L (34-104); Aspartate Amino Transferase 49 Units/L (13-39); BUN/Creatinine Ratio 29 (6-26); Bilirubin,Indirect 0.4 mg/dL (0.0-1.0); Bilirubin,Total 0.4 mg/dL (0.3-1.0); Blood Urea Nitrogen 23 mg/dL (6-20); Calcium 9.2 mg/dL (8.6-10.3); Carbon Dioxide 23 mEq/L (23-29); Chloride 104 mEq/L (98-107); Globulin 2.7 g/dL (2.4-3.5); Glucose 134 mg/dL (70-105); Osmolality,Calculated 290 (280-300); Potassium 3.4 mEq/L (3.5-5.1); Sodium 137 mEq/L (136-145); Total Protein 6.9 g/dL (6.4-8.9); eGFR For African Americans > 60 (> 60); eGFR For Non-African Americans > 60 (> 60)
[2020-09-22] MEDS ORDERED: Vancomycin 1,750 MG in 0.9 % Sodium Chloride 250 ML IVPB SCH (07:00)
[2020-09-22] MEDS ORDERED: *HR* FentaNYL (PF) 100 MCG/2 ML VIAL IVP ONE (08:00)
[2020-09-22] MEDS: Ringers Solution, Lactated 1,000 ML IVC SCH ×2 (08:14→17:12)
[2020-09-22] MEDS: *HR* HYDROcodone/Acet 5/325 mg TABLET PO PRN ×2 (10:32→17:23)
[2020-09-22] MEDS ORDERED: Fluconazole 150 MG TABLET PO ONE (12:14)
[2020-09-22] MEDS: *HR* OxyCODONE Immed Rel 5 MG TABLET PO PRN ×2 (12:46→20:19)
[2020-09-22] MEDS: Vancomycin 1,750 MG/517.5 ML IV.SOLN IVPB SCH (17:13)
[2020-09-22] MEDS: Lactobacillus 1 EACH CAP.SPRINK PO SCH (20:19)
[2020-09-23] MEDS: *HR* HYDROcodone/Acet 5/325 mg TABLET PO PRN ×2 (01:20→09:38)
[2020-09-23] MEDS: Vancomycin 1,750 MG/517.5 ML IV.SOLN IVPB SCH ×2 (05:57→18:08)
[2020-09-23] MEDS: *HR* OxyCODONE Immed Rel 5 MG TABLET PO PRN ×2 (06:04→18:21)
[2020-09-23 06:28] LABS: Basophils % 0.4 %; Eosinophils # 0.2 K/mcL (0.0-0.6); Eosinophils % 4.6 %; Hematocrit 37.9 % (37.5-50.1); Immature Granulocytes % 0.4 % (0-4); Lymphocytes # 1.6 K/mcL (0.6-4.6); Lymphocytes % 32.3 %; Mean Corpuscular HGB Conc 34.3 g/dL (31.6-35.5); Mean Corpuscular Hemoglobin 30.4 pg (28.0-33.3); Mean Corpuscular Volume 88.6 fL (83.0-100.0); Mean Platelet Volume 9.6 fL (9.4-12.4); Monocytes # 0.7 K/mcL (0.0-1.3); Monocytes % 14.1 %; Neutrophils # 2.4 K/mcL (1.6-8.9); Platelet Count 242 K/mcL (140-400); Red Blood Count 4.28 M/mcL (4.19-5.50); Red Cell Distribution Width 12.5 % (11.5-14.5); Segmented Neutrophils % 48.2 %
[2020-09-23 06:49] LABS: BUN/Creatinine Ratio 16 (6-26); Blood Urea Nitrogen 11 mg/dL (6-20); Calcium 9.1 mg/dL (8.6-10.3); Carbon Dioxide 26 mEq/L (23-29); Chloride 107 mEq/L (98-107); Glucose 84 mg/dL (70-105); Magnesium 2.1 mg/dL (1.6-2.6); Osmolality,Calculated 289 (280-300); Phosphorous 3.1 mg/dL (2.7-4.5); Potassium 3.7 mEq/L (3.5-5.1); Sodium 140 mEq/L (136-145); eGFR For African Americans > 60 (> 60); eGFR For Non-African Americans > 60 (> 60)
[2020-09-23] MEDS ORDERED: amLODIPine 5 MG TABLET PO SCH (09:30)
[2020-09-23] MEDS: lisinopriL 20 MG TABLET PO SCH (09:35)
[2020-09-23] MEDS: Lactobacillus 1 EACH CAP.SPRINK PO SCH ×2 (09:35→19:31)
[2020-09-23] MEDS: Vancomycin 2,000 MG/520 ML IV.SOLN IVPB SCH (18:21)
[2020-09-23] MEDS: carvediloL 6.25 MG TABLET PO SCH (18:21)
[2020-09-24] MEDS: *HR* OxyCODONE Immed Rel 5 MG TABLET PO PRN ×4 (01:01→23:47)
[2020-09-24 05:42] LABS: Basophils % 0.7 %; Eosinophils # 0.3 K/mcL (0.0-0.6); Eosinophils % 4.4 %; Hematocrit 41.4 % (37.5-50.1); Hemoglobin 13.8 g/dL (12.9-16.9); Immature Granulocytes % 0.5 % (0-4); Lymphocytes # 1.9 K/mcL (0.6-4.6); Lymphocytes % 32.3 %; Mean Corpuscular HGB Conc 33.3 g/dL (31.6-35.5); Mean Corpuscular Hemoglobin 29.7 pg (28.0-33.3); Mean Platelet Volume 9.7 fL (9.4-12.4); Monocytes # 0.6 K/mcL (0.0-1.3); Monocytes % 10.5 %; Platelet Count 272 K/mcL (140-400); Red Blood Count 4.65 M/mcL (4.19-5.50); Red Cell Distribution Width 12.4 % (11.5-14.5); Segmented Neutrophils % 51.6 %; White Blood Count 5.9 K/mcL (4.3-11.1)
[2020-09-24] MEDS: *HR* Enoxaparin 40 MG/0.4 ML SYRINGE SQ SCH (05:56)
[2020-09-24 05:57] LABS: Estimated Average Glucose 117 mg/dl; Hemoglobin A1C 5.7 %
[2020-09-24] MEDS: Vancomycin 2,000 MG/520 ML IV.SOLN IVPB SCH ×2 (05:57→17:25)
[2020-09-24 06:01] LABS: Magnesium 2.2 mg/dL (1.6-2.6); Phosphorous 3.7 mg/dL (2.7-4.5)
[2020-09-24 06:06] LABS: Alanine Aminotransferase 47 Units/L (7-52); Albumin 3.9 g/dL (3.5-5.7); Albumin/Globulin Ratio 1.5 (1.1-2.2); Alkaline Phosphatase 66 Units/L (34-104); Aspartate Amino Transferase 46 Units/L (13-39); BUN/Creatinine Ratio 20 (6-26); Bilirubin,Total 0.4 mg/dL (0.3-1.0); Blood Urea Nitrogen 14 mg/dL (6-20); Calcium 9.4 mg/dL (8.6-10.3); Carbon Dioxide 27 mEq/L (23-29); Chloride 106 mEq/L (98-107); Globulin 2.6 g/dL (2.4-3.5); Glucose 91 mg/dL (70-105); Osmolality,Calculated 288 (280-300); Potassium 4.1 mEq/L (3.5-5.1); Sodium 139 mEq/L (136-145); Total Protein 6.5 g/dL (6.4-8.9); eGFR For African Americans > 60 (> 60); eGFR For Non-African Americans > 60 (> 60)
[2020-09-24 06:10] LABS: Thyroid Stimulating Hormone 1.032 mcIU/mL (0.340-5.600)
[2020-09-24] MEDS: *HR* HYDROcodone/Acet 5/325 mg TABLET PO PRN ×2 (09:36→16:23)
[2020-09-24] MEDS: lisinopriL 20 MG TABLET PO SCH (09:36)
[2020-09-24] MEDS: carvediloL 6.25 MG TABLET PO SCH ×2 (09:36→16:23)
[2020-09-24] MEDS: Lactobacillus 1 EACH CAP.SPRINK PO SCH ×2 (09:36→19:57)
[2020-09-25 01:58] LABS: Magnesium 2.2 mg/dL (1.6-2.6); Phosphorous 3.6 mg/dL (2.7-4.5)
[2020-09-25] MEDS: *HR* Enoxaparin 40 MG/0.4 ML SYRINGE SQ SCH (06:10)
[2020-09-25] MEDS: Vancomycin 2,000 MG/520 ML IV.SOLN IVPB SCH ×2 (06:11→17:56)
[2020-09-25] MEDS: *HR* OxyCODONE Immed Rel 5 MG TABLET PO PRN ×3 (06:17→20:40)
[2020-09-25] MEDS: carvediloL 6.25 MG TABLET PO SCH ×2 (07:47→17:57)
[2020-09-25] MEDS: Lactobacillus 1 EACH CAP.SPRINK PO SCH ×2 (07:47→20:07)
[2020-09-25] MEDS: lisinopriL 20 MG TABLET PO SCH (07:47)
[2020-09-26] MEDS: Vancomycin 2,000 MG/520 ML IV.SOLN IVPB SCH (05:52)
[2020-09-26] MEDS: *HR* Enoxaparin 40 MG/0.4 ML SYRINGE SQ SCH (05:53)
[2020-09-26] MEDS: *HR* OxyCODONE Immed Rel 5 MG TABLET PO PRN (05:57)
[2020-09-26 08:05] VITALS: BP 127/85; PULSE 63; TEMP 98; O2SAT 99
[2020-09-26] MEDS: Lactobacillus 1 EACH CAP.SPRINK PO SCH (09:04)
[2020-09-26] MEDS: lisinopriL 20 MG TABLET PO SCH (09:04)
[2020-09-26] MEDS: carvediloL 6.25 MG TABLET PO SCH (09:04)
== END 2020-09-26 10:00 | disposition home or self-care (01) | DRG 383 ==
LOC: EMEROOARM 04:46 → 2ANU 04:46 → SUATTDRO 08:33 → 2ANU 09:38
PROVIDERS: ADMIT Family Medicine; ATTEND Internal Medicine